=== PATIENT | female | born 1975 | race Asian ===

== ENCOUNTER 2021-05-11 09:03 | Outpatient (REF) | payer BC, SELFPAY ==
[2021-05-11 11:26] LABS: MANUAL DIFF FLAG NO
[2021-05-11 11:32] LABS: Basophils Percent Auto 0.5 % (0-2); Eosinophils Absolute Auto 0.4 X10*3/uL (0.0-0.4); Eosinophils Percent Auto 4.6 % (0-4); Hematocrit 41.3 % (37.0-47.0); Hemoglobin 13.1 g/dl (12.0-16.0); Imm Gran Abs Auto 0.02 X10*3/uL (0.00-0.03); Imm Gran Pct Auto 0.3 % (0.0-0.4); Lymphocytes Absolute Auto 2.5 X10*3/uL (1.2-4.9); Lymphocytes Percent Auto 32.9 % (20-40); Mean Corpuscular HGB Conc 31.7 g/dl (31.0-35.0); Mean Corpuscular Hemoglobin 28.3 pg (27.0-33.0); Mean Corpuscular Volume 89.2 fL (80.0-98.0); Mean Platelet Volume 9.1 fL (9.4-12.3); Monocytes Absolute Auto 0.6 X10*3/uL (0.1-1.2); Monocytes Percent Auto 7.8 % (2-11); Neutrophils Absolute Auto 4.1 x10*3/uL (2.0-8.3); Neutrophils Percent Auto 53.9 % (45-73); Platelet Count 426 X10*3/uL (160-400); Red Blood Count 4.63 X10*6/uL (4.20-5.50); Red Cell Distribution Width 12.9 % (11.0-16.0); White Blood Count 7.5 X10*3/uL (4.8-10.8)
[2021-05-11 11:53] LABS: Alanine Aminotransferase 14 U/L (0-31); Albumin Level 4.4 g/dL (3.5-5.0); Alkaline Phosphatase 55 U/L (39-117); Anion Gap 11 (12-20); Aspartate Amino Transferase 20 U/L (5-31); Bilirubin Total 0.4 mg/dL (0.0-1.0); Blood Urea Nitrogen 13 mg/dL (9-16); Calcium 9.3 mg/dL (8.4-10.2); Carbon Dioxide 29 mmol/L (22-29); Chloride 103 mmol/L (96-108); Cholesterol 236 mg/dL; Estimated Glomerular Filt Rate > 60; Glucose Fasting 88 mg/dL (60-99); HDL Cholesterol 63 mg/dL; LDL Cholesterol Calculated 150 mg/dl; Potassium 4.2 mmol/L (3.3-5.1); Sodium 139 mmol/L (135-145); Total Protein 7.5 g/dL (6.5-8.0); Triglycerides 117 mg/dL
[2021-05-11 12:05] LABS: TSH reflex Free T4 2.18 uIU/mL (0.32-4.0)
== END 2021-05-11 09:04 | disposition home or self-care (01) ==
LOC: HO.WFDLDS 09:03
PROVIDERS: Visit Provider Family Medicine
DX: Z00.00 Encounter for general adult medical examination without abnormal findings (principal)
CPT/HCPCS: 36415; 80053; 80061; 84443; 85025

== ENCOUNTER 2022-03-14 09:21 | Outpatient (REF) | payer BC, SELFPAY ==
[2022-03-14 11:28] LABS: Cholesterol 232 mg/dL; HDL Cholesterol 70 mg/dL; LDL Cholesterol Calculated 143 mg/dl; Triglycerides 96 mg/dL
== END 2022-03-14 09:22 | disposition home or self-care (01) ==
LOC: HO.WFDLDS 09:21
PROVIDERS: Visit Provider Family Medicine
DX: Z00.00 Encounter for general adult medical examination without abnormal findings (principal); E78.00 Pure hypercholesterolemia, unspecified
CPT/HCPCS: 36415; 80061

== ENCOUNTER 2022-06-15 09:35 | Outpatient (REF) | payer BC, SELFPAY ==
[2022-06-15 11:05] LABS: MANUAL DIFF FLAG NO
[2022-06-15 11:12] LABS: Basophils Absolute Auto 0.1 X10*3/uL (0.0-0.2); Basophils Percent Auto 0.7 % (0-2); Eosinophils Absolute Auto 0.3 X10*3/uL (0.0-0.4); Eosinophils Percent Auto 4.3 % (0-4); Hematocrit 41.6 % (37.0-47.0); Hemoglobin 13.3 g/dl (12.0-16.0); Imm Gran Abs Auto 0.01 X10*3/uL (0.00-0.03); Imm Gran Pct Auto 0.1 % (0.0-0.4); Lymphocytes Absolute Auto 2.1 X10*3/uL (1.2-4.9); Lymphocytes Percent Auto 29.7 % (20-40); Mean Corpuscular Hemoglobin 28.5 pg (27.0-33.0); Mean Corpuscular Volume 89.1 fL (80.0-98.0); Mean Platelet Volume 9.3 fL (9.4-12.3); Monocytes Absolute Auto 0.5 X10*3/uL (0.1-1.2); Monocytes Percent Auto 6.9 % (2-11); Neutrophils Absolute Auto 4.1 x10*3/uL (2.0-8.3); Neutrophils Percent Auto 58.3 % (45-73); Platelet Count 375 X10*3/uL (160-400); Red Blood Count 4.67 X10*6/uL (4.20-5.50)
[2022-06-15 11:50] LABS: Appearance Urine Clear; Color Urine Yellow; Glucose Urine UA Negative (Negative); Leukocyte Esterase Urine Negative (Negative); Nitrite Urine Negative (Negative); Specific Gravity - Urine 1.025 (1.005-1.025); Urine Blood Negative (Negative); Urine Ketones Trace mg/dL (Negative); Urine Protein Negative (Neg-Trace)
[2022-06-15 12:05] LABS: Alanine Aminotransferase 15 U/L (0-31); Albumin Level 4.2 g/dL (3.5-5.0); Alkaline Phosphatase 57 U/L (39-117); Anion Gap 12 (12-20); Aspartate Amino Transferase 19 U/L (5-31); Bilirubin Total 0.8 mg/dL (0.0-1.0); Blood Urea Nitrogen 16 mg/dL (9-16); Calcium 8.9 mg/dL (8.4-10.2); Carbon Dioxide 25 mmol/L (22-29); Chloride 105 mmol/L (96-108); Cholesterol 209 mg/dL; Estimated Glomerular Filt Rate > 60; Glucose Fasting 101 mg/dL (60-99); HDL Cholesterol 60 mg/dL; LDL Cholesterol Calculated 133 mg/dl; Potassium 3.9 mmol/L (3.3-5.1); Sodium 138 mmol/L (135-145); Total Protein 6.7 g/dL (6.5-8.0); Triglycerides 82 mg/dL
[2022-06-15 12:32] LABS: Microalbum/Creatinine Ratio Ur 5.5 ug/mg cr
== END 2022-06-15 09:36 | disposition home or self-care (01) ==
LOC: HO.WFDLDS 09:35
PROVIDERS: Visit Provider Family Medicine
DX: Z00.00 Encounter for general adult medical examination without abnormal findings (principal); I10 Essential (primary) hypertension
CPT/HCPCS: 36415; 80053; 80061; 81003; 82043; 84443; 85025

== ENCOUNTER → 2022-07-18 08:22 | Outpatient (BNVA) | payer BC, SELFPAY | PROVIDERS: PCP Family Medicine; Visit Provider Physician Assistant | DX: Z13.89 Encounter for screening for other disorder (principal) ==

== ENCOUNTER 2022-11-15 11:19 | Outpatient (AMB) | payer BC, SELFPAY ==
--- NOTE | 2022-11-15 11:22 | A.OFFPC_ITS ---
Vital Signs 11/15/22 11:23 Height 5 ft 3 in Weight 180 lb 8 oz BMI 32.0 BP 124/86 Blood Pressure Location Rt brachial Position Sitting Respiration 12 Pulse 103 H Pulse Source Pulse Oximeter Temp 98 F Temp Source Temporal Artery Scan Pulse Oximetry (%) 99 Oxygen Delivery Method Room Air Intake Visit Reasons: F/U Hypertension Intake Note: Patient would like to know if she needs blood drawn, she fasted this morning just incase. Chief Administrative Officer Required: No Accompanied by: Self / Same As Patient Allergies ibuprofen [Ibuprofen] Allergy (Mild, Verified 11/15/22 11:27) RASH Tobacco use date assessed: 06/15/22 Dental Screening Dental Screen Date: 11/15/22 Did you have a dental visit in the last 12 months?: Yes Did you have a dental problem in the last 6 months where you did not have access to dental care?: No Was dental information given to patient?: Patient has dentist HPI F/U Hypertension HPI Details 47 y/o female presents to f/u hypertension. BP today 124/86. She is on losartan 50mg and verapamil 240 mg daily. Labs were drawn 06/15/22. Reviewed labs with pt. Triglycerides 82. TC 209. LDL 133. HDL 60. She is on artovastatin 20mg daily. She is not getting much exercise though she notes she keeps herself active at work. [facility] Medical History No pertinent past medical history Surgical History No pertinent past surgical history Social History Housing: House Patient Tobacco Use Status: Never used Tobacco e-Cigarette/Vaping Use: Never Used Second Hand Smoke Exposure: Yes (sometimes at work ) service: No Current occupational status: employed Current occupation: [employer] Current occupational exposures/hazards: No Cognitive needs: No Hearing needs: No Vision needs: No Questionnaire Thrive Questionnaire Date Thrive assessed: 04/20/21 FRANCISCA-7 AMB Questionnaire FRANCISCA-7 Date FRANCISCA - 7 assessed: 04/20/21 Source: Developed by Drs. Karel Ross, Agueda Neves, Reginaldo Ramirez and colleagues, with an educational jason from [employer]. Review of Systems Const Denies chills, Denies fatigue, Denies fever(s), Denies headache(s) and Denies weakness ENT Denies dizziness and Denies headache(s) Card Denies chest pain, Denies lightheadedness, Denies dyspnea and Denies other (Palpitations) Resp Denies cough, Denies dyspnea, Denies wheezing and Denies other ( shortness of breath) Musc Denies numbness and Denies tingling Neuro Denies dizziness, Denies headache(s), Denies numbness, Denies tingling, Denies paresthesias and Denies weakness Psych Denies anxiety and Denies depression Endo Denies fatigue Aller/Immun Denies wheezing Physical exam (Primary Care) Vital Signs: Last Vital Signs Temp 98 F 11/15/22 11:23 Pulse 103 H 11/15/22 11:23 Resp 12 11/15/22 11:23 BP 124/86 11/15/22 11:23 Pulse Ox 99 11/15/22 11:23 Oxygen Delivery Method Room Air 11/15/22 11:23 BMI result Body Mass Index 32.0 Tobacco/Smoking Status: Tobacco use Status Tobacco use date assessed 06/15/22 11/15/22 11:30 Patient Tobacco Use Status Never used Tobacco 11/15/22 11:30 e-Cigarette/Vaping Use Never Used 11/15/22 11:30 Thrive Assessment: Date of Thrive Assessment Date Thrive assessed 04/20/21 11/15/22 11:30 Const General: no acute distress and well developed Nutritional Appearance: well nourished Orientation/consciousness: patient oriented x3 [facility] Head: Yes normocephalic and Yes atraumatic Eyes General: appearance normal, both eyes and all related structures Pupils: Equal, round and reactive pupils present EOM: EOMs intact bilaterally Resp Effort & Inspection: normal respiratory effort Auscultation: clear to auscultation bilaterally Cardio Rate: regular rate Rhythm: regular rhythm Heart sounds: S1 normal heart sound present, S2 normal heart sound present, no gallops, no murmurs and no rubs Neuro General: patient oriented x3 and gait normal Cranial nerves: Yes Equal, round and reactive pupils present Psych Affect: normal affect Assessment and Plan Assessment & Plan (1) Essential hypertension: Code(s): I10 - Essential (primary) hypertension Plan: Blood pressure is controlled. 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 Ratios are good Continue current medication (3) Elevated fasting glucose: Code(s): R73.01 - Impaired fasting glucose Plan: Mildly elevated fasting blood sugar We will repeat this prior to her next visit Orders: Referrals Gastroenterology Referral Z12.11 - Encounter for screening for malignant neoplasm of colon Coding Level of Care Code Est Pt Level 3 (66870) Diagnoses Essential hypertension I10 Hypercholesterolemia E78.00 Elevated fasting glucose R73.01
[2022-11-15 11:23] VITALS: BP 124/86; PULSE 103; RESP 12; TEMP 36.6; O2SAT 99; BMI 32.0
== END 2022-11-15 11:55 | disposition home or self-care (01) ==
PROVIDERS: PCP Family Medicine; Visit Provider Family Medicine
DX: I10 Essential (primary) hypertension (principal); E78.00 Pure hypercholesterolemia, unspecified; R73.01 Impaired fasting glucose
CPT/HCPCS: 99213

== ENCOUNTER 2023-03-05 09:08 | Outpatient (REF) | payer BC, SELFPAY ==
[2023-03-05 12:06] LABS: TSH reflex Free T4 1.91 uIU/mL (0.32-4.0)
[2023-03-05 12:27] LABS: Alanine Aminotransferase 18 U/L (0-31); Albumin Level 4.2 g/dL (3.5-5.0); Alkaline Phosphatase 65 U/L (39-117); Anion Gap 13 (12-20); Aspartate Amino Transferase 21 U/L (5-31); Bilirubin Total 0.5 mg/dL (0.0-1.0); Blood Urea Nitrogen 11 mg/dL (9-16); Calcium 9.2 mg/dL (8.4-10.2); Carbon Dioxide 25 mmol/L (22-29); Chloride 103 mmol/L (96-108); Cholesterol 136 mg/dL (<200); Estimated Glomerular Filt Rate > 60; Glucose Fasting 98 mg/dL (60-99); HDL Cholesterol 56 mg/dL (>40); LDL Cholesterol Calculated 64 mg/dL (<100); Potassium 3.6 mmol/L (3.3-5.1); Sodium 137 mmol/L (135-145); Total Protein 7.5 g/dL (6.5-8.0); Triglycerides 82 mg/dL (<150)
== END 2023-03-05 09:09 | disposition home or self-care (01) ==
LOC: HO.WFDLDS 09:08
PROVIDERS: Visit Provider Family Medicine
DX: Z00.00 Encounter for general adult medical examination without abnormal findings (principal); R73.01 Impaired fasting glucose
CPT/HCPCS: 36415; 80053; 80061; 84443

== ENCOUNTER 2023-03-07 08:27 | Outpatient (AMB) | payer BC, SELFPAY ==
[2023-03-07 08:30] VITALS: BP 148/88; PULSE 124; RESP 13; O2SAT 94; BMI 31.2
--- NOTE | 2023-03-07 08:30 | A.OFFPC_ITS ---
Vital Signs 03/07/23 08:30 Height 5 ft 3 in Weight 176 lb BMI 31.2 BP 148/88 H Blood Pressure Location Lt brachial Position Sitting Respiration 13 Pulse 124 H Pulse Source Pulse Oximeter Pulse Oximetry (%) 94 Oxygen Delivery Method Room Air Intake Visit Reasons: F/U Hypertension Intake Note: Patient is here to follow up with her blood pressure. She mentions she's had a cough and cold x1 week and has tried OTC medications and they were not helpful. Patient requests information on OTC medications she can take with blood pressure concerns. Phys Ther Required: No Accompanied by: Self / Same As Patient Allergies ibuprofen [Ibuprofen] Allergy (Mild, Verified 03/07/23 08:36) RASH Tobacco use date assessed: 06/15/22 HPI F/U Hypertension HPI Details 48 y/o female presents to f/u hypertensi on. Blood pressure today 148/88 124p but pt states she does not feel well today. She reports cough x1 week. She is on losartan 50mg and verapamil 240mg daily. A1c today 03/07/23 6.0%. [facility] Medical History No pertinent past medical history Surgical History No pertinent past surgical history Social History Housing: House Patient Tobacco Use Status: Never used Tobacco e-Cigarette/Vaping Use: Never Used Second Hand Smoke Exposure: Yes (sometimes at work ) service: No Current occupational status: employed Current occupation: [employer] Current occupational exposures/hazards: No Cognitive needs: No Hearing needs: No Vision needs: No Questionnaire Thrive Questionnaire Date Thrive assessed: 04/20/21 FRANCISCA-7 AMB Questionnaire FRANCISCA-7 Date FRANCISCA - 7 assessed: 04/20/21 Source: Developed by Drs. Karel Ross, Agueda Neves, Reginlado Ramirez and colleagues, with an educational jason from [employer]. Review of Systems Const Denies chills, Denies fatigue, Denies fever(s), Denies headache(s) and Denies weakness ENT Denies dizziness and Denies headache(s) Card Denies dyspnea Resp Reports cough, Denies dyspnea and Denies wheezing Musc Denies numbness and Denies tingling Neuro Denies dizziness, Denies headache(s), Denies numbness, Denies tingling and Denies weakness Psych Denies anxiety and Denies depression Endo Denies fatigue Aller/Immun Denies wheezing Physical exam (Primary Care) Vital Signs: Last Vital Signs Pulse 124 H 03/07/23 08:30 Resp 13 03/07/23 08:30 BP 148/88 H 03/07/23 08:30 Pulse Ox 94 03/07/23 08:30 Oxygen Delivery Method Room Air 03/07/23 08:30 BMI result Body Mass Index 31.2 Tobacco/Smoking Status: Tobacco use Status Tobacco use date assessed 06/15/22 03/07/23 08:37 Patient Tobacco Use Status Never used Tobacco 03/07/23 08:37 e-Cigarette/Vaping Use Never Used 03/07/23 08:37 Thrive Assessment: Date of Thrive Assessment Date Thrive assessed 04/20/21 03/07/23 08:37 Const General: well developed; No acute distress Nutritional Appearance: well nourished Orientation/consciousness: patient oriented x3 [facility] Head: Yes normocephalic and Yes atraumatic Eyes General: appearance normal, both eyes and all related structures Pupils: Equal, round and reactive pupils present EOM: EOMs intact bilaterally Resp Effort & Inspection: normal respiratory effort Neuro General: patient oriented x3 and gait normal Cranial nerves: Yes Equal, round and reactive pupils present Psych Affect: normal affect Results AMB Hemoglobin A1c AMB Hemoglobin A1c 6.0 % Last Edit by Emi Barraza CMA on 03/07/23 08:54 Results Reviewed Results Reviewed: Laboratory Last Values Hgb A1c (Clinic) 6.0 % (4.0-6.0) 03/07/23 08:53 Assessment and Plan Assessment & Plan (1) Essential hypertension: Code(s): I10 - Essential (primary) hypertension Plan: Is?elevated?today?but?she?has?had?a?cough?and?some?congestion.??Has?been?using?a ?cough?medicine?at?home?as?well. No?change?to?her?blood?pressure?medications?today She?has?a?blood?pressure?monitor?at?home?and?will?check?to?make?sure?blood?press ure?is?improving?as?she?gets?better?and?cough?resolves. (2) Pre-diabetes: Code(s): R73.03 - Prediabetes Plan: She?had?had?elevated?fasting?blood?sugar?and?A1c?today?is?6.0%;?pre?diabetes Encouraged?a?diet?low?in?sugars?and?starches.??Encouraged?weight?loss?and?exerci se (3) Cough: Code(s): R05.9 - Cough, unspecified Plan: Nasal?swab?for?COVID/flu/RSV?acquired. More?likely?a?mild?viral?illness?like?a?cold. Advised?rest?and?fluids Orders: Orders Comprehensive [place]. Panel Fast Today Z00.00 - Encounter for general adult medical examination without abnormal findings Lipid Panel Today Z00.00 - Encounter for general adult medical examination without abnormal findings Microalbumin, Random (w Creat) Today I10 - Essential (primary) hypertension AMB Hemoglobin A1c Today Z13.9 - Encounter for screening, unspecified SARS-CoV2/FLU/RSV Today R05.9 - Cough, unspecified, Z20.822 - Contact with and (suspected) exposure to COVID-19 TSH reflex Free T4 Today Z00.00 - Encounter for general adult medical examination without abnormal findings UA and rflx microscopic Today Z00.00 - Encounter for general adult medical examination without abnormal findings Hemoglobin A1c Today R73.01 - Impaired fasting glucose Coding Level of Care Code Est Pt Level 4 (70979) Diagnoses Essential hypertension I10 Pre-diabetes R73.03 Cough R05.9
== END 2023-03-07 09:39 | disposition home or self-care (01) ==
PROVIDERS: PCP Family Medicine; Visit Provider Family Medicine
DX: I10 Essential (primary) hypertension (principal); R73.03 Prediabetes; R05.9 Cough, unspecified
CPT/HCPCS: 83036; 99214

== ENCOUNTER 2023-03-07 09:06 | Outpatient (REF) | payer BC, SELFPAY ==
[2023-03-07 13:21] LABS: Influenza A PCR NEGATIVE (Negative); Influenza B PCR NEGATIVE (Negative); Resp Syncy Virus RNA Qual PCR NEGATIVE (Negative); SARS COV2 PCR INHOUSE NEGATIVE (Negative)
== END 2023-03-07 09:07 | disposition home or self-care (01) ==
LOC: HO.LAB 09:06
PROVIDERS: Visit Provider Family Medicine
DX: Z11.52 Encounter for screening for COVID-19 (principal); Z20.822 Contact with and (suspected) exposure to COVID-19; R05.9 Cough, unspecified
CPT/HCPCS: 0241U

== ENCOUNTER 2023-04-22 07:43 | Day surgery (SDC) | payer BC, SELFPAY ==
--- NOTE | 2023-04-19 09:16 | HO.ANESPROP2 ---
Documented by User: Destini Garcia NP 04/19/23 12:38 HPI - Anesthesia Eval Consult details Narrative: 48yo F for Colonoscopy Follows [facility] cardiology for htn, PVCs, mild-mod MR. Stable at last office visit 05/2022 with 1 year f/u. [facility] Active Problems Active Problems: All Active Problems (Updated 03/07/23 @ 08:59 by Angelo Huertas) Cough (Acute) Pre-diabetes (Acute) Elevated fasting glucose (Acute) Mitral valve regurgitation (Acute) Screening for colon cancer (Acute) Prolonged QT syndrome (Acute) Shortness of breath (Acute) Abnormal EKG (Acute) History of COVID-19 (Acute) Screening for cervical cancer (Acute) Breast cancer screening by mammogram (Acute) Hypercholesterolemia (Acute) Adult general medical exam (Acute) Palpitations (Acute) Family history of heart disease (Acute) Tachycardia (Acute) Headache (Acute) Essential hypertension (Acute) Laboratory exam ordered as part of routine general medical examination (Acute) Past Medical History Medical History (Updated 04/19/23 @ 12:28 by Yessica Licona RN) Pre-diabetes Elevated cholesterol HTN (hypertension) No pertinent past medical history Surgical History Surgical History (Updated 04/22/23 @ 08:02 by Nasra Rogers RN) History of bilateral tubal ligation No pertinent past surgical history Social History Social History Housing: House Patient Tobacco Use Status: Never used Tobacco e-Cigarette/Vaping Use: Never Used Second Hand Smoke Exposure: Yes (sometimes at work ) Advance Directives: No Advance Directives Information Provided: Yes service: No Current occupational status: employed Current occupation: [employer] Current occupational exposures/hazards: No Cognitive needs: No Hearing needs: No Vision needs: No Meds Allergies Allergy/AdvReac Type Severity Reaction Status Date / Time ibuprofen [Ibuprofen] Allergy Mild RASH Verified 03/07/23 08:36 Home Medications Medication Instructions Recorded Confirmed Last Taken Type cholecalciferol (vitamin D3) 125 125 mcg PO DAILY 03/23/21 07/18/22 Unknown History mcg (5,000 unit) capsule multivitamin (Daily Multi-Vitamin 1 tab PO DAILY 03/23/21 07/18/22 Unknown History tablet) ascorbate calcium (vitamin C) 500 500 mg PO DAILY 03/14/22 07/18/22 Unknown History mg tablet Exam Pertinent Lab Results Pertinent Lab Results: Laboratory Tests 06/15/22 03/05/23 09:45 09:12 WBC 7.0 Hgb 13.3 Hct 41.6 Plt Count 375 Sodium 137 Potassium 3.6 Chloride 103 Carbon Dioxide 25 BUN 11 Creatinine 0.77 Assessment and Plan Assessment Anesthesia Assessment: Chart Reviewed Documented by User: Norma Landry MD 04/22/23 08:19 [facility] Past Medical History Medical History (Updated 04/19/23 @ 12:28 by Yessica Licona RN) Pre-diabetes Elevated cholesterol HTN (hypertension) No pertinent past medical history Family History Family history of problems with anesthesia: No Surgical History Surgical History (Updated 04/22/23 @ 08:02 by Nasra Rogers RN) History of bilateral tubal ligation No pertinent past surgical history History of Problems with Anesthesia: No Social History Social History Housing: House Patient Tobacco Use Status: Never used Tobacco e-Cigarette/Vaping Use: Never Used Second Hand Smoke Exposure: Yes (sometimes at work ) Advance Directives: No Advance Directives Information Provided: Yes service: No Current occupational status: employed Current occupation: [employer] Current occupational exposures/hazards: No Cognitive needs: No Hearing needs: No Vision needs: No Meds Allergies Allergy/AdvReac Type Severity Reaction Status Date / Time ibuprofen [Ibuprofen] Allergy Mild RASH Verified 03/07/23 08:36 Home Medications Medication Instructions Recorded Confirmed Last Taken Type cholecalciferol (vitamin D3) 125 125 mcg PO DAILY 03/23/21 07/18/22 Unknown History mcg (5,000 unit) capsule multivitamin (Daily Multi-Vitamin 1 tab PO DAILY 03/23/21 07/18/22 Unknown History tablet) ascorbate calcium (vitamin C) 500 500 mg PO DAILY 03/14/22 07/18/22 Unknown History mg tablet Exam Airway Mallampati Class: II TM Dist: >3cm Neck ROM: Full Heart: rrr Lungs: cta Assessment and Plan Assessment Anesthesia Assessment: Anesthesia Plan Discussed Final Anesthetic Review Family History of Problems with Anesthesia: No History of Problems with Anesthesia: No NPO: Yes ASA Class: II Final Preanesthetic Review: No Changes in Pt Med Stat, Meds/Allgs Chart Reviewed and Consent Obtained/Reviewed Patient Risk: Intermediate Procedure Risk: Intermediate Anesthetic Plan Anesthetic Plan: MAC: Disposition: Standard PACU
--- NOTE | 2023-04-22 08:08 | MHC.SHP ---
Pre-Procedural Eval Section A Date of Service: 04/22/23 The patient is an INPATIENT: No The History & Physical has been completed within 30 days and I have reviewed it.: No Section B Chief Complaint: Colon cancer screening Relevant Family History (Specify if Yes): No Relevant Social History: None Present Medications: see Short Stay Collaborative assessment Medical History: Significant History (hypertension, MV regurgitation, Prolonged QT interval) History of Previous Operations: Relevant previous surgery/procedure and date(s) (Status post bilateral tubal ligation) Allergies: Allergies Allergy/AdvReac Type Severity Reaction Status Date / Time ibuprofen [Ibuprofen] Allergy Mild RASH Verified 03/07/23 08:36 Review of Systems Sugical H&P ROS: Negative: Constitution, Cardiovascular, Respiratory and Gastrointestinal Exam Surgical H&P Exam: Normal: Lungs, Normal: Extremities and Normal: Abdomen and Significant Findings: Heart (2/6 systolic murmur at the apex) Plan Diagnosis/Plan: Unchanged I have reviewed the history and physical and performed a pertinent physical examination on my patient. No changes have occurred unless specified. Time Spent With Patient Time: Total time managing care of this patient today ____ minutes.
[2023-04-22 08:20] VITALS: BMI 31.9
[2023-04-22 08:46] VITALS: BP 147/88; PULSE 93; RESP 18; TEMP 37.4; O2SAT 99
--- NOTE | 2023-04-22 09:16 | W.PM.OPN ---
Operative Note Operative Note Date of Service: 04/22/23 Narrative: COLONOSCOPY TILL CECUM WITH BIOPSIES, SNARE POLYPECTOMY, SUBMUCOSAL INJECTION AND HEMOCLIP PLACEMENT Pre-op diagnosis: Colon cancer screening (1st colonoscopy) Post-op diagnosis:? Colon polyps, diverticulosis, hemorrhoids Endoscopist:Lino Be MD Anesthesia:?MAC Consent: Indications for the procedure and potential complications of bleeding, perforation, reaction to medications and missed diagnosis were discussed with the patient and informed consent was obtained. Instrument: Olympus PCF H 190 L variable stiffness pediatric colonoscope Monitoring: Vital signs and clinical assessment, intermittent blood pressure monitoring, continuous EKG monitoring, Pulse oximetry and Carbon Dioxide monitoring were done throughout the procedure. Please see anesthesia flowsheet. Colon withdrawl time was 27 minutes. Procedure: The patient was placed in the left lateral decubitis position and pre-procedure medications were administered. After a digital rectal examination of the ano-rectum, the video colonoscope was inserted into the rectum and advanced through the colon to the cecum. The colonoscope was slowly withdrawn in a retrograde panoramic fashion and the colon mucosa was carefully examined including a retroflexed view of the rectum. Findings and interventions are described below. Procedure Difficulty: Without difficulty Findings: Terminal Ileum: Not evaluated Cecum: A 2-3 mm sessile polyp - removed with a cold biopsy Ascending Colon: A 12 mm sessile polyp at the hepatic flexure - removed with a hot snare Transverse Colon: A 15-18 mm flat polyp at 65 cms - raised with 5 cc of Ele[place] and removed with a hot snare. Polypectomy site was closed with 1 hemoclip and marked with Fang ink. A 12 - 15 mm flat polyp at 60 cms. Polyp was raised with 6 cc of Eleview and removed with a hot snare. Polypectomy site was marked with Fang ink. Descending Colon: Moderate diverticulosis Sigmoid Colon: A 10 - 12 mm sessile polyp - removed with a hot snare. Moderate diverticulosis Rectum: Normal Ano-rectum: Small internal hemorrhoids Colon preparation: Good after some irrigation [place] Bowel Preparation Scale Right colon; 3 Transverse colon: 3 Left colon; 2 (0 = Unprepared colon segment with mucosa not seen due to solid stool that cannot be cleared. 1 = Portion of mucosa of the colon segment seen, but other areas of the colon segment not well seen due to staining, residual stool and/or opaque liquid. 2 = Minor amount of residual staining, small fragments of stool and/or opaque liquid, but mucosa of colon segment seen well. 3 = Entire mucosa of colon segment seen well with no residual staining, small fragments of stool or opaque liquid) Impression and Post Procedure Diagnosis: Colonoscopy Findings: One small and four medium sized polyps removed Moderate diverticulosis seen in the left colon Small hemorrhoids on retroflexed exam. Plan: Await pathology results Patient has an appointment on 05/07/23 in the GI Clinic with JOEL Weiner. Repeat Colonoscopy interval based on path results - in 2-3 years if polyps are adenomatous and 10 years if polyps are hyperplastic. Above findings were reviewed with the patient and colon polyps and diverticulosis handouts were given in the discharge area.
[2023-04-22 10:01] VITALS: BP 97/64; PULSE 60; RESP 16; TEMP 36.3; O2SAT 100
[2023-04-22 10:16] VITALS: BP 117/71; PULSE 64; RESP 14; TEMP 36.3; O2SAT 100
== END 2023-04-22 10:56 | disposition home or self-care (01) ==
PROVIDERS: PCP Family Medicine; Visit Provider Internal Medicine Gastroenterology
PROC: 0DJD8ZZ Inspection of Lower Intestinal Tract, Via Natural or Artificial Opening Endoscopic (ICD-10-PCS; CPT 45378; principal; 2023-04-22 09:20)
DX: Z12.11 Encounter for screening for malignant neoplasm of colon (principal); D12.3 Benign neoplasm of transverse colon; D12.8 Benign neoplasm of rectum; K57.30 Diverticulosis of large intestine without perforation or abscess without bleeding; K64.8 Other hemorrhoids; R73.03 Prediabetes; I10 Essential (primary) hypertension; E78.00 Pure hypercholesterolemia, unspecified
CPT/HCPCS: 45385; 45380; 45381; 88305; J2704

== ENCOUNTER → 2023-04-22 07:43 | Outpatient (BNV) | payer BC, SELFPAY | PROVIDERS: PCP Family Medicine; Visit Provider Internal Medicine Gastroenterology | DX: Z12.11 Encounter for screening for malignant neoplasm of colon (principal); K63.5 Polyp of colon; K57.90 Diverticulosis of intestine, part unspecified, without perforation or abscess without bleeding; K64.8 Other hemorrhoids | CPT/HCPCS: 45380; 45381; 45385 ==

== ENCOUNTER 2023-05-21 14:35 | Outpatient (AMB) | payer BC, SELFPAY ==
--- NOTE | 2023-05-21 14:42 | A.OFFVIS_ITS ---
Intake Vital Signs 05/21/23 14:44 05/22/23 08:37 Height 5 ft 2 in Weight 176 lb BMI 32.2 BP 133/81 Blood Pressure Location Lt brachial Position Sitting Pulse 112 H 96 Intake Visit Reasons: S/P [place]; Dr. Be Intake Note: Patient follow up for Colonoscopy results Patient denies any GI issues. 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 She tolerated procedure well He has no GI complaints today Appetite is good Bowels are normal Reviewed procedure report, pathology and recommendation No nausea, vomiting, hematemesis, hematochezia fever chills [facility] Medical History (Updated 05/22/23 @ 08:38 by Patrica Bose PA-C) Pre-diabetes Elevated cholesterol HTN (hypertension) No pertinent past medical history Surgical History Hx of colonoscopy History of bilateral tubal ligation No pertinent past surgical history Social History Housing: House Comment: mild cramping-on menses Patient Tobacco Use Status: Never used Tobacco e-Cigarette/Vaping Use: Never Used Second Hand Smoke Exposure: Yes (sometimes at work ) service: No Current occupational status: employed Current occupation: [employer] Current occupational exposures/hazards: No Cognitive needs: No Hearing needs: No Vision needs: No Review of Systems Const All systems reviewed & are unremarkable except as noted in HPI and below Physical Exam Vital Signs: Last Vital Signs Pulse 112 H 05/21/23 14:44 BP 133/81 05/21/23 14:44 BMI result Body Mass Index 32.2 Const General: cooperative, healthy appearing, comfortable and no acute distress Orientation/consciousness: patient oriented x3 Limitations: no limitations Eyes Sclerae: sclerae normal Resp Effort & Inspection: normal respiratory effort and able to speak in complete sentences Neuro General: patient oriented x3 Results Reviewed Results Reviewed: mpression and Post Procedure Diagnosis: Colonoscopy Findings: One small and four medium sized polyps removed Moderate diverticulosis seen in the left colon Small hemorrhoids on retroflexed exam. Plan: Await pathology results Patient has an appointment on 05/07/23 in the [facility] with JOEL Weiner. Repeat Colonoscopy interval based on path results - in 2-3 years if polyps are adenomatous and 10 years if polyps are hyperplastic. Above findings were reviewed with the patient and colon polyps and diverticulosis handouts were gi mpression and Post Procedure Diagnosis: Colonoscopy Findings: One small and four medium sized polyps removed Moderate diverticulosis seen in the left colon Small hemorrhoids on retroflexed exam. Plan: Await pathology results Patient has an appointment on 05/07/23 in the GI Clinic with JOEL Weiner. Repeat Colonoscopy interval based on path results - in 2-3 years if polyps are adenomatous and 10 years if polyps are hyperplastic. Above findings were reviewed with the patient and colon polyps and diverticulosis handouts were gi Surgical Pathology [id number] Name: Nico Garg Age/Sex: 48/F Attending: Alyssa Be MD : 1975 Submitted by: Alyssa Be MD Copies to: Maurice Villagomez MD MR #: [id number] Status: [facility] Collected: 04/22/23 Location: [facility] Received: 04/22/23 Diagnosis A. Colon, cecal polyp: Colonic mucosa with no specific change; no adenomatous dysplasia seen. B. Colon, hepatic flexure, polyp: Colonic mucosa with focal minimal hyperplastic changes; no adenomatous dysplasia seen. C. Colon, transverse, 2 polyps: Sessile serrated lesion/polyp without dysplasia, one, and hyperplastic polyp, one. D. Colon, rectal polyp: Tubular adenoma; negative for high-grade dysplasia and carcinoma. Clinical History Pre-Op Dx: Colon cancer screening Post-Op Dx: Colon polyps, diverticulosis Microscopic Description Microscopic sections reviewed. Material Received A. Cecum polyp B. Hepatic flexure polyp C. Transverse colon polyps x2 D. Rectal polyp Gross Description Received in 4 parts. Part A: Received in formalin labeled ?cecum polyp? are 2 erickson-pink irregular tissue fragments measuring 0.15 and 0.3 cm, submitted in toto in a cassette labeled A. Part B: Received in formalin labeled ?hepatic flexure polyp? is a 0.5 cm erickson rectangular tissue fragment, submitted in toto in a cassette labeled B. Part C: Received in formalin labeled ?transverse colon polyps x2? are 2 hyperemic and congested, erickson- pink and pink-maroon papular tissue fragments measuring 0.5 and 0.6 cm in greatest dimension, submitted in toto in a cassette labeled C. Part D: Received in formalin labeled ?rectal polyp? are 5 erickson and erickson-pink irregular and rectangular Patient: Nico Garg Age/Sex: 48/F MR#: [id number] Page 1 of 2 Assessment & Plan Assessment & Plan (1) Sessile colonic polyp: Code(s): K63.5 - Polyp of colon (2) Tubular adenoma of colon: Code(s): D12.6 - Benign neoplasm of colon, unspecified (3) Diverticulosis of colon: Code(s): K57.30 - Diverticulosis of large intestine without perforation or abscess without bleeding Plan AFDR- begin screening at age 40- Repeat polyp surveillance 3 years Patient Instructions: Pleasant 48-year-old female follows up after index screening colonoscopy with polyp Reviewed procedure report, pathology recommendation Repeat asymptomatic colonoscopy 3 years All first-degree relatives should begin screening at age 40 Discussed diverticulosis/diverticulitis ER protocol Maintain high-fiber diet Encouraged to call with any questions or concerns Coding Level of Care Code Est Pt Level 3 (33729) Diagnoses Sessile colonic polyp K63.5 Tubular adenoma of colon D12.6 Diverticulosis of colon K57.30 Time Spent (min) 20
[2023-05-21 14:44] VITALS: BP 133/81; PULSE 112; BMI 32.2
[2023-05-22 08:37] VITALS: PULSE 96
== END 2023-05-21 15:34 | disposition home or self-care (01) ==
PROVIDERS: PCP Family Medicine; Visit Provider Physician Assistant
DX: K63.5 Polyp of colon (principal); D12.6 Benign neoplasm of colon, unspecified; K57.30 Diverticulosis of large intestine without perforation or abscess without bleeding
CPT/HCPCS: 99213

== ENCOUNTER → 2023-05-21 14:35 | Outpatient (BNVA) | payer BC, SELFPAY | PROVIDERS: PCP Family Medicine; Visit Provider Physician Assistant ==

== ENCOUNTER 2023-06-19 09:01 | Outpatient (REF) | payer BC, SELFPAY ==
[2023-06-19 11:43] LABS: Appearance Urine Clear; Color Urine Yellow; Glucose Urine UA Negative (Negative); Leukocyte Esterase Urine Trace (Negative); Nitrite Urine Negative (Negative); PH 5.5 (5.0-9.0); Specific Gravity - Urine 1.025 (1.005-1.025); UMIC TRIGGER UA YES; Urine Blood Negative (Negative); Urine Ketones Negative (Negative); Urine Protein Negative (Neg-Trace)
[2023-06-19 11:45] LABS: Bacteria Urine None Seen (None Seen); Hyaline Casts Urine 0-2 /LPF (0-2); RBC Urine 0-2 /HPF (0-2); Squamous Epithelial Cell Urine 0-2 /HPF (0-2); WBC Urine 0-5 /HPF (0-5)
[2023-06-19 11:52] LABS: Estimated Average Glucose 123 mg/dL; Hemoglobin A1c % 5.9 % (<6.0)
[2023-06-19 12:32] LABS: Creatinine Urine 174.75 mg/dL; Microalbum/Creatinine Ratio Ur 5.7 ug/mg cr (<30)
[2023-06-19 12:49] LABS: Alanine Aminotransferase 23 U/L (0-31); Albumin Level 4.1 g/dL (3.5-5.0); Alkaline Phosphatase 58 U/L (39-117); Anion Gap 10 (12-20); Aspartate Amino Transferase 21 U/L (5-31); Bilirubin Total 0.4 mg/dL (0.0-1.0); Blood Urea Nitrogen 12 mg/dL (9-16); Calcium 9.3 mg/dL (8.4-10.2); Carbon Dioxide 26 mmol/L (22-29); Chloride 109 mmol/L (96-108); Cholesterol 170 mg/dL (<200); Estimated Glomerular Filt Rate > 60; Glucose Fasting 90 mg/dL (60-99); HDL Cholesterol 63 mg/dL (>40); LDL Cholesterol Calculated 89 mg/dL (<100); Potassium 4.1 mmol/L (3.3-5.1); Sodium 141 mmol/L (135-145); TSH reflex Free T4 1.14 uIU/mL (0.32-4.0); Total Protein 7.3 g/dL (6.5-8.0); Triglycerides 94 mg/dL (<150)
== END 2023-06-19 09:02 | disposition home or self-care (01) ==
LOC: HO.WFDLDS 09:01
PROVIDERS: Visit Provider Family Medicine
DX: Z00.00 Encounter for general adult medical examination without abnormal findings (principal); I10 Essential (primary) hypertension; R73.01 Impaired fasting glucose
CPT/HCPCS: 36415; 80053; 80061; 81001; 82043; 82570; 83036; 84443

== ENCOUNTER 2023-11-14 15:38 | Outpatient (AMB) | payer BC, SELFPAY ==
--- NOTE | 2023-11-14 16:30 | A.OFFPC_ITS ---
Vital Signs 11/14/23 16:38 Height 5 ft 2 in Weight 184 lb 8 oz BMI 33.7 BP 110/80 Blood Pressure Location Lt brachial Position Right Lateral Respiration 16 Pulse 82 Pulse Source Pulse Oximeter Temp 98 F Temp Source Tympanic Pulse Oximetry (%) 97 Oxygen Delivery Method Room Air Intake Visit Reasons: CPE Intake Note: follow up for labs and CPE Allergies ibuprofen [Ibuprofen] Allergy (Mild, Verified 11/14/23 16:33) RASH Tobacco use date assessed: 06/15/22 Dental Screening Dental Screen Date: 11/14/23 Did you have a dental visit in the last 12 months?: Yes Did you have a dental problem in the last 6 months where you did not have access to dental care?: No Was dental information given to patient?: Patient has dentist HPI HPI Comments History of Present Illness Details 48 y/o female presents for a CPE with f/ u labs and health maintenance. Labs were drawn 06/19/23. Reviewed labs with pt. A1c 5.9%. Triglycerides 94. TC 170. LDL 89. HDL 63. She is on artovastatin 20mg. TSH 1.14. Blood pressure today 110/80, 82p. She is on losartan 50mg, verapamil 240mg. Recent pap smear which was fine per pt. Exercises once a week. [facility] Medical History (Updated 05/22/23 @ 08:38 by Patrica Bose PA-C) Pre-diabetes Elevated cholesterol HTN (hypertension) No pertinent past medical history Surgical History Hx of colonoscopy History of bilateral tubal ligation No pertinent past surgical history Social History Housing: House Comment: mild cramping-on menses Patient Tobacco Use Status: Never used Tobacco e-Cigarette/Vaping Use: Never Used Second Hand Smoke Exposure: Yes (sometimes at work ) service: No Current occupational status: employed Current occupation: [employer] Current occupational exposures/hazards: No Cognitive needs: No Hearing needs: No Vision needs: No Questionnaire PHQ-9 Over the last 2 weeks, how often have you been bothered by any of the following problems? 1. Little interest or pleasure in doing things: not at all 2. Feeling down, depressed, or hopeless: not at all 3. Trouble falling or staying asleep, or sleeping too much: not at all 4. Feeling tired or having little energy: not at all 5. Poor appetite or overeating: not at all 6. Feeling bad about yourself - or that you are a failure or have let yourself or your family down: not at all 7. Trouble concentrating on things, such as reading the newspaper or watching television: not at all 8. Moving or speaking so slowly that other people could have noticed. Or the opposite - being so fidgety or restless that you have been moving around a lot more than usual: not at all 9. Thoughts that you would be better off or of hurting yourself in some way: not at all Total score: 0 Depression Screening Interpretation: Negative Depression Screening Done: Yes [id number] - PHQ-9 Billing: Yes Source: Developed by Drs. Karel Ross, Ageuda Neves, Reginaldo Ramirez and colleagues, with an educational jason from [employer]. Thrive Questionnaire Date Thrive assessed: 11/14/23 I am a: Patient What is your living situation today?: I have a steady place to live Within the past 12 months, did the food you bought not last and you didn't have the money to get more?: Never true Within the past 12 months, did you worry whether your food would run out before you got money to buy more?: Never true Do you have trouble paying for medicines?: No Do you have trouble getting transportation to medical appointments?: No Do you have trouble paying your heating and electricity bill?: No Do you have trouble taking care of your child, family member or friend?: No Do you have trouble with day-to-day activities such as bathing, preparing meals, shopping, managing finances, etc.?: No Are you currently unemployed and looking for a job?: No Are you interested in more education?: No Please select the resources that you would like help with: None Currently or been in a relationship where the following occur: No concerns reported THRIVE Score: 0 AUDIT C Alcohol Use Questionnaire (AUDIT-C) 1. How often do you have a drink containing alcohol?: Never 3. How often do you have six or more drinks on one occasion?: Never Total Score: 0 Score Reviewed/Action Taken: Yes FRANCISCA-7 AMB Questionnaire FRANCISCA-7 Date FRANCISCA - 7 assessed: 11/14/23 Feeling nervous, anxious, or on edge: 0 = Not at all Not being able to stop or control worryin = Not at all Worrying too much about different things: 0 = Not at all Trouble relaxin = Not at all Being so restless that it is hard to sit still: 0 = Not at all Becoming easily annoyed or irritable: 0 = Not at all Feeling afraid as if something awful might happen: 0 = Not at all Total FRANCISCA-7 score (0-4 normal; 5-9 mild; 10-14 moderate; 15-21 severe): 0 Source: Developed by Drs. Karel Ross, Agueda Neves, Reginaldo Ramirez and colleagues, with an educational jason from [employer]. FRANCISCA-7 Assessment Billing FRANCISCA-7 Assessment Tool: FRANCISCA-7 Assessment 36284 Review of Systems Const Denies chills, Denies fatigue, Denies fever(s), Denies headache(s) and Denies weakness Eyes Denies change in vision ENT Denies dizziness, Denies headache(s), Denies hearing loss, Denies nasal congestion, Denies sinus pain, Denies sinus pressure and Denies sore throat Card Denies chest pain, Denies lightheadedness, Denies dyspnea and Denies other (palpitations) Resp Denies cough, Denies dyspnea and Denies wheezing GI Denies abdominal pain, Denies melena, Denies hematochezia, Denies change in bowel habits, Denies dyspepsia and Denies nausea Denies hematuria and Denies dysuria Musc Denies abnormal gait, Denies myalgias, Denies arthralgias, Denies numbness and Denies tingling Skin/Breast Denies rash, Denies unusual bruising and Denies wounds Neuro Denies abnormal gait, Denies dizziness, Denies headache(s), Denies memory loss, Denies numbness, Denies Sensory deficit (Neuro), Denies tingling and Denies weakness Psych Denies anxiety, Denies depression and Denies memory loss Endo Denies cold intolerance, Denies fatigue, Denies heat intolerance, Denies polydipsia and Denies polyuria Scott/Lymph Denies easy bleeding and Denies easy bruising Aller/Immun Denies wheezing Physical exam (Primary Care) Vital Signs: Last Vital Signs Temp 98 F 11/14/23 16:38 Pulse 82 11/14/23 16:38 Resp 16 11/14/23 16:38 BP 110/80 11/14/23 16:38 Pulse Ox 97 11/14/23 16:38 Oxygen Delivery Method Room Air 11/14/23 16:38 BMI result Body Mass Index 33.7 Tobacco/Smoking Status: Tobacco use Status Tobacco use date assessed 06/15/22 11/14/23 16:30 Patient Tobacco Use Status Never used Tobacco 11/14/23 16:30 e-Cigarette/Vaping Use Never Used 11/14/23 16:30 PHQ-9: PHQ-9 Score PHQ-9: Total score 0 11/14/23 17:04 Depression Screening Interpretation: Negative Thrive Assessment: Date of Thrive Assessment Date Thrive assessed 11/14/23 11/14/23 16:41 Currently or been in a relationship where the following occur: No concerns reported Const General: no acute distress, well developed, alert and awake Nutritional Appearance: well nourished Orientation/consciousness: patient oriented x3 HENMT Head: Yes normocephalic and Yes atraumatic Ears: hearing grossly normal bilaterally and TM's normal bilaterally General nose exam: Normal external nose present and Normal nares present Mouth: Normal oral and palatal mucosa present and moist mucous membranes Teeth and gingiva: dentition normal Throat: Yes posterior oropharynx normal Eyes General: appearance normal, both eyes and all related structures Pupils: Equal, round and reactive pupils present and Pupil accommodation reflex normal EOM: EOMs intact bilaterally Neck Neck: Yes normal visual inspection, Yes no lymphadenopathy and Yes trachea midline Thyroid: Thyroid normal Carotids: no bruits Lymphatic: no lymphadenopathy noted Chest Chest palpation & inspection: normal inspection of the chest Resp Effort & Inspection: normal respiratory effort Auscultation: clear to auscultation bilaterally Cardio Rate: regular rate Rhythm: regular rhythm Heart sounds: S1 normal heart sound present, S2 normal heart sound present, no gallops, no murmurs and no rubs Bruits: no abdominal aortic bruits and no carotid bruits GI Palpation (GI): No Abdominal aortic bruit present, Soft to palpation, nontender, No hepatosplenomegaly present and No Rebound tenderness present Auscultation: normal bowel sounds General: Yes no CVA tenderness Back/Spine/Pelvis Back: no CVA tenderness Cervical Spine: cervical ROM normal and No Cervical spine tenderness Thoracic/Lumbar Spine: thoraco-lumbar ROM normal, No pain with thoraco-lumbar ROM, No thoracic spinal tenderness and No lumbar spinal tenderness Skin Lesions: no lesions Rashes: no rashes Trauma: no lacerations or abrasions Wounds: no wounds Nails: normal Neuro General: patient oriented x3 Cranial nerves: Yes Equal, round and reactive pupils present Cognition (Neuro): normal cognition Gait exam (Neuro): Normal gait present Motor exam (neuro): 5/5 motor strength present throughout Sensory Exam: No Sensory deficit (Neuro) Deep tendon reflexes (DTR's): Right patellar reflex intensity grade: 2+ and Left patellar reflex intensity grade: 2+ Extrem General: Yes normal to inspection and No edema Psych Appearance: grossly normal Affect: normal affect Attitude: cooperative Thought process: Normal thought process present Assessment and Plan Assessment & Plan (1) Adult general medical exam: Code(s): Z00.00 - Encounter for general adult medical examination without abnormal findings Plan: 48-year-old?female?presents?for?complete?physical?exam Encouraged?healthy?diet?with?active?lifestyle?and?plenty?of?exercise (2) Hypercholesterolemia: Code(s): E78.00 - Pure hypercholesterolemia, unspecified Plan: TC?and?LDL?cholesterol?are?controlled?on?atorvastatin Continue?current?medication (3) Pre-diabetes: Code(s): R73.03 - Prediabetes Plan: Encouraged?diet?low?in?sugars?and?starches (4) Essential hypertension: Code(s): I10 - Essential (primary) hypertension Plan: Blood?pressure?is?well?controlled?on?verapamil?and?losartan. Continue?current?medication (5) Breast cancer screening by mammogram: Code(s): Z12.31 - Encounter for screening mammogram for malignant neoplasm of breast Plan: Patient?had?recent?mammogram.??I?do?not?have?records?and?will?request?them?from? [facility] (6) Screening for cervical cancer: Code(s): Z12.4 - Encounter for screening for malignant neoplasm of cervix Plan: Patient?had?recent?Pap?smear?and?I?do? not?have?records.??She?says?that?this?was?recent?and?was?normal. Likely?up-to-date.??Will?request?records (7) Screening for colon cancer: Code(s): Z12.11 - Encounter for screening for malignant neoplasm of colon Plan: Patient?had?colonoscopy?this?year?and?was?told?to?follow-up?in?3?years. Up-to-date. Medications: Refilled atorvastatin 20 mg PO BEDTIME 30 days 30 tabs 0RF Coding Level of Care Code Est Pt Level 3 (35882) Est Pt Prev Care 40-64y(07298) Diagnoses Adult general medical exam Z00.00 Hypercholesterolemia E78.00 Pre-diabetes R73.03 Essential hypertension I10 Breast cancer screening by mammogram Z12.31 Screening for cervical cancer Z12.4 Screening for colon cancer Z12.11 Additional Codes FRANCISCA-7 Assessment Billing - FRANCISCA-7 Assessment Tool: FRANCISCA-7 Assessment 22528 ([id number])
[2023-11-14 16:38] VITALS: BP 110/80; PULSE 82; RESP 16; TEMP 36.6; O2SAT 97; BMI 33.7
== END 2023-11-14 17:05 | disposition home or self-care (01) ==
PROVIDERS: PCP Family Medicine; Visit Provider Family Medicine
DX: Z00.00 Encounter for general adult medical examination without abnormal findings (principal); E78.00 Pure hypercholesterolemia, unspecified; R73.03 Prediabetes; I10 Essential (primary) hypertension
CPT/HCPCS: 99396

== ENCOUNTER 2024-06-11 08:30 | Outpatient (AMB) | payer BC, SELFPAY ==
--- NOTE | 2024-06-11 08:47 | MHC.PC.OV ---
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 She?is?taking?verapamil?and?losartan?as?prescribed. No?problems?with?these?medications She?is?also?again?wondering?if?she?can?discontinue?atorvastatin. She?is?taking?vitamin-D.??No?recent?vitamin-D?level [facility] Medical History (Updated 06/11/24 @ 09:26 by Maurice Villagomez MD) Pre-diabetes Elevated cholesterol HTN (hypertension) No pertinent past medical history Surgical History Hx of colonoscopy History of bilateral tubal ligation No pertinent past surgical history Social History Housing: House Comment: mild cramping-on menses Patient Tobacco Use Status: Never used Tobacco e-Cigarette/Vaping Use: Never Used Second Hand Smoke Exposure: Yes (sometimes at work ) service: No Current occupational status: employed Current occupation: [employer] Current occupational exposures/hazards: No Cognitive needs: No Hearing needs: No Vision needs: No Questionnaire PHQ-9 Over the last 2 weeks, how often have you been bothered by any of the following problems? 1. Little interest or pleasure in doing things: not at all 2. Feeling down, depressed, or hopeless: not at all 3. Trouble falling or staying asleep, or sleeping too much: not at all 4. Feeling tired or having little energy: not at all 5. Poor appetite or overeating: not at all 6. Feeling bad about yourself - or that you are a failure or have let yourself or your family down: not at all 7. Trouble concentrating on things, such as reading the newspaper or watching television: not at all 8. Moving or speaking so slowly that other people could have noticed. Or the opposite - being so fidgety or restless that you have been moving around a lot more than usual: not at all 9. Thoughts that you would be better off or of hurting yourself in some way: not at all Total score: 0 Depression Screening Interpretation: Negative Depression Screening Done: Yes 50596 - PHQ-9 Billing: Yes Source: Developed by Drs. Karel Ross, Agueda Neves, Reginaldo Ramirez and colleagues, with an educational jason from [employer]. Thrive Questionnaire Date Thrive assessed: 06/08/24 I am a: Patient What is your living situation today?: I have a steady place to live Within the past 12 months, did the food you bought not last and you didn't have the money to get more?: I choose not to answer this question Within the past 12 months, did you worry whether your food would run out before you got money to buy more?: I choose not to answer this question Do you have trouble paying for medicines?: No Do you have trouble getting transportation to medical appointments?: No Do you have trouble paying your heating and electricity bill?: No Do you have trouble taking care of your child, family member or friend?: No Do you have trouble with day-to-day activities such as bathing, preparing meals, shopping, managing finances, etc.?: No Are you currently unemployed and looking for a job?: No Are you interested in more education?: No Please select the resources that you would like help with: None Currently or been in a relationship where the following occur: No concerns reported THRIVE Score: 0 AUDIT C Alcohol Use Questionnaire (AUDIT-C) 1. How often do you have a drink containing alcohol?: Never 3. How often do you have six or more drinks on one occasion?: Never Total Score: 0 FRANCISCA-7 AMB Questionnaire FRANCISCA-7 Date FRANCISCA - 7 assessed: 11/14/23 Feeling nervous, anxious, or on edge: 0 = Not at all Not being able to stop or control worryin = Not at all Worrying too much about different things: 0 = Not at all Trouble relaxin = Not at all Being so restless that it is hard to sit still: 0 = Not at all Becoming easily annoyed or irritable: 0 = Not at all Feeling afraid as if something awful might happen: 0 = Not at all Total FRANCISCA-7 score (0-4 normal; 5-9 mild; 10-14 moderate; 15-21 severe): 0 Source: Developed by Drs. Karel Ross, Agueda Neves, Reginaldo Ramirez and colleagues, with an educational jason from [employer]. Review of Systems Const Denies chills, Denies fatigue, Denies fever(s), Denies headache(s) and Denies weakness ENT Denies dizziness and Denies headache(s) Card Denies chest pain, Denies lightheadedness, Denies dyspnea and Denies other (Palpitations) Resp Denies cough, Denies dyspnea, Denies wheezing and Denies other ( shortness of breath) Musc Denies numbness and Denies tingling Neuro Denies dizziness, Denies headache(s), Denies numbness, Denies tingling, Denies paresthesias and Denies weakness Psych Denies anxiety and Denies depression Endo Denies fatigue Aller/Immun Denies wheezing Physical exam (Primary Care) Vital Signs: Last Vital Signs Temp 97.7 F 06/11/24 08:48 Pulse 68 06/11/24 08:48 Resp 16 06/11/24 08:48 BP 130/74 06/11/24 08:48 Pulse Ox 98 06/11/24 08:48 Oxygen Delivery Method Room Air 06/11/24 08:48 BMI result Body Mass Index 33.4 Tobacco/Smoking Status: Tobacco use Status Tobacco use date assessed 06/15/22 06/11/24 08:51 Patient Tobacco Use Status Never used Tobacco 06/11/24 08:51 e-Cigarette/Vaping Use Never Used 06/11/24 08:51 PHQ-9: PHQ-9 Score PHQ-9: Total score 0 06/11/24 08:51 Depression Screening Interpretation: Negative Thrive Assessment: Date of Thrive Assessment Date Thrive assessed 06/08/24 06/11/24 08:51 Currently or been in a relationship where the following occur: No concerns reported Const General: no acute distress and well developed Nutritional Appearance: well nourished Orientation/consciousness: patient oriented x3 HENMT Head: Yes normocephalic and Yes atraumatic Eyes General: appearance normal, both eyes and all related structures Pupils: Equal, round and reactive pupils present EOM: EOMs intact bilaterally Resp Effort & Inspection: normal respiratory effort Auscultation: clear to auscultation bilaterally Cardio Rate: regular rate Rhythm: regular rhythm Heart sounds: S1 normal heart sound present, S2 normal heart sound present, no gallops, no murmurs and no rubs Neuro General: patient oriented x3 and gait normal Cranial nerves: Yes Equal, round and reactive pupils present Psych Affect: normal affect Coding Level of Care Code Est Pt Level 4 (44525) Diagnoses Essential hypertension I10 Hypercholesterolemia E78.00 Vitamin D deficiency E55.9 Additional Codes PHQ-9 - 34026 - PHQ-9 Billing: Yes ([id number]) Assessment & Plan Assessment & Plan (1) Essential hypertension: Code(s): I10 - Essential (primary) hypertension Category: Medical Plan: Blood?pressure?is?controlled.??Goal?is?less?than?140/90 Continue?current?medication Encouraged?diet?low?in?salt/sodium.??Encouraged?weight?control?and?exercise. (2) Hypercholesterolemia: Code(s): E78.00 - Pure hypercholesterolemia, unspecified Category: Medical Plan: Lipids?were?controlled?at?last?check?and?she?is?on?atorvastatin 20?mg?daily. She?would?like?to decrease?or?discontinue?this?medication?but?will?continue?it?for?now. Will?recheck?lipid?levels?and?discuss?decrease?in?medication?if?we?can. (3) Vitamin D deficiency: Code(s): E55.9 - Vitamin D deficiency, unspecified Category: Medical Plan: No?recent?vitamin-D?level.??Patient?is?taking?5000?IU?vitamin-D?daily Will?check?vitamin-D?level?with?her?next?lab?draw. Orders: Orders Hemoglobin A1c Today R73.01 - Impaired fasting glucose, R73.03 - Prediabetes Comprehensive [place]. Panel Fast Today I10 - Essential (primary) hypertension, Z00.00 - Encounter for general adult medical examination without abnormal findings Microalbumin, Random (w Creat) Today I10 - Essential (primary) hypertension Vitamin D 25-OH Total Today E55.9 - Vitamin D deficiency, unspecified Lipid Panel Today E78.00 - Pure hypercholesterolemia, unspecified, Z00.00 - Encounter for general adult medical examination without abnormal findings
[2024-06-11 08:48] VITALS: BP 130/74; PULSE 68; RESP 16; TEMP 36.5; O2SAT 98; BMI 33.4
--- OUTSIDE RECORDS SUMMARY | 2024-06-11 09:04 | XMS_ITS ---
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 :1975???Age:48 Y???Sex:Female D ate:06/25/2023 [address]: [id number] Pcp:DEZ AHMADI Subjective: * Chief Complaints: * ???1. 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 * Medical History:? Objective: * Vitals:? Assessment: Plan: * Treatment: * Images: Billing Information: * Visit Code:? * Procedure Codes:? * Electronic signature of Edy Shepard MD on 06/11/2024 at 09:04 AM EDT Sign off status: Pending * Appointment Provider:?Aisha Shepard M.D. Date:?06/25/2023 Generated for Barry xiong/Simeon/Reynaldoitting on:?06/11/2024 09:04 AM EDT
--- OUTSIDE RECORDS SUMMARY | 2024-06-11 09:04 | XMS_ITS ---
Author Organization [employer] [facility] Address [address] [place] [address] Care Team Providers Care Community Support Specialist Name Role Phone DEZ AHMADI Primary Care Provider Unavailab eric Aisha Shepard Unavailable [phone] Allergies Allergen (clinical drug ingredient) Drug/Non Drug Allergy documented on EMR Reaction Allergy Type Onset Date Status Motrin Rash Drug Allergy Active Results Component Value Reference Range Notes Urinalysis Reviewed date:09/10/2023 09:27:15 AM Interpretation: Performing Lab: Notes/Report: PH 5.0 PROTEIN Neg GLUCOSE Neg BLOOD Neg [id number] IGP No Culture 30 Plus Reviewed date:09/12/2023 04:26:57 PM Interpretation: Performing Lab:[facility], [address], [address], [place], Phone - [phone], Director - [facility] Notes/Report: Clinical Information:Vaginal/Cervical, LMP: 5/2 024 [id number] Dates / Results....03/21/21 NIL, Neg HPV No. of containers..01 ThinPrep Vial DIAGNOSIS: NEGATIVE FOR IN TRAEPITHELIAL LESION OR MALIGNANCY. Specimen adequacy: Satisfactory for evaluation. Endocervical and/or squamous metaplastic cells (endocervical component) are present. Clinician provided ICD10: Z0 1.419 Performed by: Tex bright, Strip Machine Tender (ASCP) . . Note: The Pap smear is a screening test designed to aid in the detection of premalignant and malignant conditions of the uterine cervix. It is not a diagnostic procedure and should not be used as the sole means of detecting cervical cancer. Both false-positive and false-negative reports do occur. . Test Methodology: [facility] The [employer] Prep(R) Autism Teacher was unable to read this specimen. Therefore a manual review was performed. HPV Aptima Negative Negative This nucleic acid amplification test detects fourteen high-risk HPV types (16,18,31,33,35,39,45,51,52,56,58 ,59,66,68) without differentiation. HPV Genotype Reflex Criteria not met, HPV Genotype not performed. PDF Report Reviewed date:09/12/2023 04:26:34 PM Interpretation: Performing Lab:[facility], [address], [address], [place], Phone - [phone], Director - [facility] Notes/Report: Clinical Information:Vaginal/Cervical, LMP: 07/31 024 [id number] Dates / Results....03/21/21 NIL, Neg HPV No. 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 Physical, Annual ORTHOTIST OR PROSTHETIST Physical 50-59* Medications Medication SIG (Take, Route, Frequency, Duration) Notes Start Date End Date Status Vitamin D3 125 MCG (5000 UT) 1 capsule Orally Once a day Active Verapamil HCl ER 240 MG 1 capsule Orally Once a day for 30 day(s) Active Losartan Potassium 50 MG 1 tablet Orally Once a day for 30 days Active Social History Tobacco Use: Social History Observation Description Date Details (start date - stop date) Never Smoker NA - NA Tobacco Use/Smoking Question Answer Notes Are you a nonsmoker Alcohol Screen (Audit-C) Question Answer Notes Did you have a drink containing alcohol in the p ast year? No Points 0 Interpretation Negative Sexual History Question Answer Notes Had sex in the past 12 months (vaginal, oral, or anal)? Yes Vital Signs Temperature 98.1 degrees Fahrenheit 09/10/19 24 Blood pressure systolic 122 mm Hg 09/10/19 24 Blood pressure diastolic 80 mm Hg 024 Height 63 in 09/10/2023 Weight 180 lbs 09/10/2023 BMI 31.88 kg/m2 09/10/2023 Encounters Encounter Location Date Provider Diagnosis [address] [place] [address] 09/10/2023 Aisha Shepard Encounter for gynecological examination (general) (routine) without abnormal findings Z01.419 ; Encounter for screening mammogram for malignant neoplasm of breast Z12.31 and Dense breasts, unspecified R92.30 Assessments Encounter Date Diagnosis (ICD Code) Assessment Notes Treatment Notes Treatment Clinical Notes Section Notes 09/10/2023 Encounter for gynecological examination (general) (routine) without abnormal findings (ICD-10 - Z01.419) PAP TEST WITH HPV TYPING WAS OBTAINED. 09/10/2023 Encounter for screening mammogram for malignant neoplasm of breast (ICD-10 - Z12.31) REGULAR MAMMOGRAMS AND SBE'S WERE RECOMMENDED. 09/10/2023 Dense breasts, unspecified (ICD-10 - R92.30) DISCUSSED DENSE BREASTS ON MAMMOGRAM AND ITS IMPLICATIONS. 3D MAMMOGRAMS WERE RECOMMENDED. Plan Of Treatment Treatment Notes Assessment Notes Encounter for gynecological examination (general) (routine) without abnormal findings PAP TEST WITH HPV TYPING WAS OBTAINED. Encounter for screening mamm ogram for malignant neoplasm of breast REGULAR MAMMOGRAMS AND SBE'S WERE RECOMMENDED. Dense breasts, unspecified DISCUSSED DENSE BREASTS ON MAMMOGRAM AND ITS IMPLICATIONS. 3D MAMMOGRAMS WERE RECOMMENDED. Pending Test Test Name Order Date MM Digital Mammo Screening 09/10/2023 Next Appt Details Follow Up: 1 Year, Reason: Provider Name:Aisha huerta, 09/11/2024 09:10:00 AM, [employer], [address], [place], [address], Progress Notes * RAFIQ DUBONDOB:1975 ( 48 yo F)Acc No.[id number]:09/10/2023 PROGRESS NOTES Patient:?RAFIQ DUBON Appointment Provider:?Aisha huerta M.D. :1975???Age:48 Y???Sex:Female D ate:09/10/2023 [facility] Pcp:DEZ AHMADI Subjective: * Chief Complaints: * ???Annual ORTHOTIST OR PROSTHETIST PhysicalAnnual ORTHOTIST OR PROSTHETIST Physical 50-59* * HPI: ???New/Follow-up Patient Consult:? PAT'S MENSES ARE COMING AT LONGER INTERVALS.? SHE DENIES HEAVY BLEEDING.? SHE ALSO DENIES HOT FLASHES AND NIGHT SWEATS AND HAS NO DYSPAREUNIA.? S/P BTL. SHE HAS 3 DAUGHTERS, AGES 18. 16 AND 10.? THEY ARE ALL DOING WELL. HER [facility]ST [facility] DONE [facility] 2023 SHOWED DENSE BREASTS AND WAS NORMAL.? SHE HAS NO FAMILY HX OF BREAST, OVARIAN, COLON OR UTERINE CA. HER LAST PAP TEST IN 2020 WAS NEGATIVE AND HPV NEGATIVE. SHE HAD A COLONOSCOPY DONE IN 2023 AND POLYPS WERE EXCISED.? SHE WILL NEED ANOTHER COLONOSCOPY DONE IN 3 YEARS. PFIZER X 2. ???Annual:? Patient presents for annual exam, ages 50-59. 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 * Medical History:? 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 Control:?none.?Menarche?9.?Colonoscopy?05/2023 Q 3 Years, Polyps.?Bone Density:?No.?Gardasil:?No.? * OB History:?Total pregnancies?3.?Total living children?3.? * Surgical History:?Tubal Liga tion 2013 * Hospitalization/Major Diagno stic Procedure:?See Surgical Hx * Family History:?Mother: dece ased, diagnosed with Unspecified heart disease.?Father: , diagnosed with Unspecified heart disease.? * Social History:?Tobacco Use:?Tobacco Use/Smoking?Are you a?nonsmoker ???Sexual History:?Details of Sexual History?Are you sexually active??Yes ?Sexual History?Had sex in the past 12 months (vaginal, oral, or anal)??Yes ???Drugs/Alcohol:?Drugs?Have you used drugs other than those for medical reasons in the past 12 months??No ?Alcohol Screen (Audit-C)?Did you have a drink containing alcohol in the past year??No ?Points?0 ?Interpretation?Negative ???Miscellaneous:?Children: yes, 3. ?Exercise: yes. ?Home smoke detector use: yes. ?Living with: spouse. ?Marital status: . ?Natural support system: yes. 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 ?Sexually active: yes, monogamous relationship. * Medications:?TakingVitamin D 3 125 MCG (5000 UT) Capsule 1 capsule Orally Once a day Losartan Potassium 50 MG Tablet 1 tablet Orally Once a day Verapamil HCl ER 240 MG Capsule Extended Release 24 Hour 1 capsule Orally Once a day Medication List reviewed and reconciled with the patientTaking Vitamin D3 125 MCG (5000 UT) Capsule 1 capsule Orally Once a day Taking Losartan Potassium 50 MG Tablet 1 tablet Orally Once a day Taking Verapamil HCl ER 240 MG Capsule Extended Release 24 Hour 1 capsule Orally Once a day Medication List reviewed and reconciled with the patient * Allergies:?Motrin: Brian Sellers[Allergies Verified] Objective: * Vitals:?Ht: 63 in, Wt:180lbs , BMI:31.88Index, BP:122/80mm Hg, Temp:98.1F. * Examination: ???General Exam: ?CONSTITUTIONAL:?General Appearance:?alert, in no acute distress, normal, well nourished ?NECK/THYROID:?Inspection/Palpation:?normal ?Thyroid:?normal size and shape ?RESPIRATORY:?Auscultation: clear to auscultation bilaterally, Respiratory Effort: normal.?CARDIOVASCULAR:?Auscultation: regular rate and rhythm.?BREAST, Right:?Inspection/Palpation:?no discharge, no masses present, no nipple retraction, no skin changes, no skin dimpling, no tenderness, no lymphadenopathy, no axillary mass, no axillary tenderness ?BREAST, Left:?Inspection/Palpation:?no discharge, no masses present, no nipple retraction, no skin changes, no skin dimpling, no tenderness, no lymphadenopathy, no axillary mass, no axillary tenderness ?GASTROINTESTINAL:?Abdomen:?no masses, nontender, nondistended ?Liver and Spleen:?normal ?Hernias:?no hernias present, no inguinal adenopathy ?MUSCULOSKELETAL:?Inspection/Palpation:?no clubbing, cyanosis, or edema ?SKIN:?Skin:?normal ?NEURO/PSYCH:?Orientation:?time , place, person ?Mood/Affect:?normal?Genitourinary: ?EXTERNAL GENITALIA:?External Genitalia:?normal, no lesions ?VAGINA:?Vagina:?normal appearance, no abnormal discharge, no lesions ?BLADDER:?Bladder:?no mass, nontender ?URETHRA:?Urethra:?no erythema or lesions present ?CERVIX:?Cervix:?no lesions, nontender ?UTERUS:?Uterus:?nontender, normal contour, normal mobility, normal size ?ADNEXA:?Adnexa:?no masses, no tenderness ?ANUS AND PERINEUM:?Anus/Perineum:?visually normal??? Assessment: * Assessment: 1.?Encounter for gynecologic al examination (general) (routine) without abnormal findings - Z01.419?2.?Encounter for screening mammogram for malignant neoplasm of breast - Z12.31?3.?Dense breasts, unspecified - R92.30? Plan: * Treatment: ? Value Reference Range ?PH 5.0 * ?PROTEIN Neg * ?GLUCOSE Neg * ?BLOOD Neg * DIONISIO Jewell 09/10/2023 09:23:05 AM EDT > Notes: PAP TEST WITH HPV TYPING WAS OBTAINED.??2.?Encounter for screening mammogram for malignant neoplasm of breast?Imaging: MM Digital Mammo Screening Notes: REGULAR MAMMOGRAMS AND SBE'S WERE RECOMMENDED.??3.?Dense breasts, unspecified? Notes: DISCUSSED DENSE BREASTS ON MAMMOGRAM AND ITS IMPLICATIONS. 3D MAMMOGRAMS WERE RECOMMENDED.?? * Procedure Codes:? * Preventive Medicine:? ??YOUR PREVENTIVE WELLNESS PLAN:?Osteoporosis prevention?Calcium, D, strength training.?Breast Cancer Screening (Mammogram):?annually.?Cervical Cancer Screening (Pap Smear):?q 3 years with HPV screen.?Colorectal Cancer Screening:?q 10 years.? * Follow Up:?1 Year * Images: Billing Information: * Visit Code:? 21106 Preventive Care New Pt. Age 40-64. 90027 Preventive Care Est Pt. Age 40-64. * Procedure Codes:? * Sign off status: Completed true * Appointment Provider:?Aisha Shepard M.D. Date:?09/10/2023 Generated for Barry xiong/Simeon/Leno on:?06/11/2024 09:04 AM EDT History and Physical Notes * HPI (History of Present Illness) Category Sub-Category Detail Notes Category Not es New/Follow-up Patient Consult PAT'S MENSES ARE COMING AT LONGER INTERVALS. SHE DENIES HEAVY BLEEDING. SHE ALSO DENIES HOT FLASHES AND NIGHT SWEATS AND HAS NO DYSPAREUNIA. S/P BTL. SHE HAS 3 DAUGHTERS, AGES 18. 16 AND 10. THEY ARE ALL DOING WELL. HER [facility]ST [facility] 20[facility] SHOWED DENSE BREASTS AND WAS NORMAL. SHE HAS NO FAMILY HX OF BREAST, OVARIAN, COLON OR UTERINE CA. HER LAST PAP TEST IN 2020 WAS NEGATIVE AND HPV NEGATIVE. SHE HAD A COLONOSCOPY DONE IN 2023 AND POLYPS WERE EXCISED. SHE WILL NEED ANOTHER COLONOSCOPY DONE IN 3 YEARS. PFIZER X 2. 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 Examination Category Sub-Category Detail Notes Category Not es General Exam CONSTITUTIONAL: General Appearan ce:: alert, in no acute distress, normal, well nourished NECK/THYROID: Thyroid:: normal size and shape Inspection/Palpation:: normal RESPIRATORY: Auscultation: clear to auscultation bilaterally, Respiratory Effort: normal CARDIOVASCULAR: Auscultation: regula r rate and rhythm GASTROINTESTINAL: Hernias:: no hernias present, no inguinal adenopathy Liver and Spleen:: normal Abdomen:: no masses, nontender, nondiste nded MUSCULOSKELETAL: Inspection/Palpation:: no clubb ing, cyanosis, or edema SKIN: Skin:: normal NEURO/PSYCH: Mood/Affect:: normal Orientation:: time , place, person BREAST, Right: Inspection/Palpation :: no discharge, no masses present, no nipple retraction, no skin changes, no skin dimpling, no tenderness, no lymphadenopathy, no axillary mass, no axillary tenderness BREAST, Left: Inspection/Palpation :: no discharge, no masses present, no nipple retraction, no skin changes, no skin dimpling, no tenderness, no lymphadenopathy, no axillary mass, no axillary tenderness Genitourinary EXTERNAL GENITALIA: External Genitalia:: nor mal, no lesions VAGINA: Vagina:: normal appearance, no a bnormal discharge, no lesions BLADDER: Bladder:: no mass, nontender URETHRA: Urethra:: no erythema or lesions present CERVIX: Cervix:: no lesions, nontender UTERUS: Uterus:: nontender, normal conto ur, normal mobility, normal size ADNEXA: Adnexa:: no masses, no tendernes s ANUS AND PERINEUM: Anus/Perineum:: visually norm al
--- OUTSIDE RECORDS SUMMARY | 2024-06-11 09:04 | XMS_ITS | Patient Health Record ---
Author Organization [employer] [facility] Address [address] [place] [address] Care Team Providers Care Field Services Manager Name Role Phone DAIANA DEZ Primary Care Provider Unavailab Aisha Randall Unavailable [phone] Allergies Allergen (clinical drug ingredient) Drug/Non Drug Allergy documented on EMR Reaction Allergy Type Onset Date Status Motrin Rash Drug Allergy Active Results Component Value Reference Range Notes Urinalysis Reviewed date:09/10/2023 09:27:15 AM Interpretation: Performing Lab: Notes/Report: PH 5.0 PROTEIN Neg GLUCOSE Neg BLOOD Neg [id number] IGP No Culture 30 Plus Reviewed date:09/12/2023 04:26:57 PM Interpretation: Performing Lab:[facility], [address], [address], [place], Phone - [phone], Director - [facility] Notes/Report: Clinical Information:Vaginal/Cervical, LMP: 5/2 024 [id number] Dates / Results....03/21/21 NIL, Neg HPV No. of containers..01 ThinPrep Vial DIAGNOSIS: NEGATIVE FOR IN TRAEPITHELIAL LESION OR MALIGNANCY. Specimen adequacy: Satisfactory for evaluation. Endocervical and/or squamous metaplastic cells (endocervical component) are present. Clinician provided ICD10: Z0 1.419 Performed by: Tex bright, Field Training Agent (ASCP) . . Note: The Pap smear is a screening test designed to aid in the detection of premalignant and malignant conditions of the uterine cervix. It is not a diagnostic procedure and should not be used as the sole means of detecting cervical cancer. Both false-positive and false-negative reports do occur. . Test Methodology: [facility] The Open[employer] Prep(R) Leather Grader was unable to read this specimen. Therefore a manual review was performed. HPV Aptima Negative Negative This nucleic acid amplification test detects fourteen high-risk HPV types (16,18,31,33,35,39,45,51,52,56,58 ,59,66,68) without differentiation. HPV Genotype Reflex Criteria not met, HPV Genotype not performed. PDF Report Reviewed date:09/12/2023 04:26:34 PM Interpretation: Performing Lab:[facility] [place], [address], [address], [place], Phone - [phone], Director - [facility] Notes/Report: Clinical Information:Vaginal/Cervical, LMP: 07/31 024 [id number] Dates / Results....03/21/21 NIL, Neg HPV No. of containers..01 ThinPrep Vial Reason For Referral No Information Medications Medication SIG (Take, Route, Frequency, Duration) [...] 12 months (vaginal, oral, or anal)? Yes Problems Problem Type SNOMED Code ICD Code Onset Dates Problem Status W/U Status Risk Notes Problem Essential hypertension (01470122) Essential (primary) hypertension (I10) Active confirmed Vital Signs Temperature 98.1 degrees Fahrenheit 09/10/2023 Blood pressure diastolic 80 mm Hg 09/10/2023 Height 63 in 09/10/2023 Blood pressure systolic 122 mm Hg 09/10/2023 Weight 180 lbs 09/10/2023 BMI 31.88 kg/m2 09/10/2023 Encounters Encounter Location Date Provider Diagnosis Total [address] [place] [address] 09/10/2023 Aisha Shepard Encounter for gynecological examination [...] 3D MAMMOGRAMS WERE RECOMMENDED. Plan Of Treatment Pending Test Test Name Order Date Urinalysis 03/21/2021 DIAGNOSTIC MAMMOGRAM, RIGHT BREAST 03/21 MM Digital Mammo Screening 06/21/2022 MM Digital Mammo Screening 09/10/2023 Right Breast Ultrasound 03/21/2021 DIGITAL SCREENING MAMMO LEFT BREAST 03/02 Next Appt Details Provider Name:Aisha huerta, 09/11/2024 09:10:00 AM, [address], [address], [place], [address], Insurance Providers Payer Name Payer Address Payer Phone Subscriber Number Group Number Insured Name Patient Relationship to Insured Coverage Start Date Coverage End Date [employer] [place] [address] [place] [address] [id number] ZEE DUBON Spouse - patient is the spouse of the insured Medical (General) History Medical History History ICD Code Essential (primary) hypertension I10 Inconclusive mammogram R92.2 Unspecified lump in the right breast, up per outer quadrant N63.11 Mammographic heterogeneous density, bila teral breasts R92.333 Surgical History Surgery Date(Month/Year) Tubal Ligation 2013 Hospitalization History Reason Date(Month/Year) See Surgical Hx
== END 2024-06-11 09:22 | disposition home or self-care (01) ==
LOC: HO.HMCFM 08:31
PROVIDERS: PCP Family Medicine; Visit Provider Family Medicine
DX: I10 Essential (primary) hypertension (principal); E78.00 Pure hypercholesterolemia, unspecified; E55.9 Vitamin D deficiency, unspecified

== ENCOUNTER → 2024-06-11 08:30 | Outpatient (BNVA) | payer BC, SELFPAY | PROVIDERS: PCP Family Medicine; Visit Provider Family Medicine | DX: I10 Essential (primary) hypertension (principal); E78.00 Pure hypercholesterolemia, unspecified; E55.9 Vitamin D deficiency, unspecified; Z79.899 Other long term (current) drug therapy | CPT/HCPCS: 96127 ==

== ENCOUNTER 2024-08-26 08:01 | Outpatient (REF) | payer BC, SELFPAY ==
--- OUTSIDE RECORDS SUMMARY | 2024-08-26 08:07 | XMS_ITS | Patient Health Record ---
Author Organization [employer] [facility] Address [address] [place] [address] Care Team Providers Care Commissary Manager Name Role Phone DEZ AHMADI Primary Care Provider Unavailab Aisha Randall Unavailable [phone] Allergies Allergen (clinical drug ingredient) Drug/Non Drug Allergy documented on EMR Reaction Allergy Type Onset Date Status Motrin Rash Drug Allergy Active Results Component Value Reference Range Notes PDF Report Reviewed date:09/12/2023 04:26:34 PM Interpretation: Performing Lab:[facility], [address], [address], [place], Phone - [phone], Director - [facility] Notes/Report: Clinical Information:Vaginal/Cervical, LMP: 07/31 [id number] Dates / Results....03/21/21 NIL, Neg HPV No. of containers..01 ThinPrep Vial Urinalysis Reviewed date:09/10/2023 09:27:15 AM Interpretation: Performing Lab: Notes/Report: PH 5.0 PROTEIN Neg GLUCOSE Neg BLOOD Neg [id number] IGP No Culture 30 Plus Reviewed date:09/12/2023 04:26:57 PM Interpretation: Performing Lab:[facility], [address], [address], [employer] [place], Phone - [phone], Director - [facility] Notes/Report: Clinical Information:Vaginal/Cervical, LMP: 07/31 024 [id number] Dates / Results....03/21/21 NIL, Neg HPV No. of containers..01 ThinPrep Vial DIAGNOSIS: NEGATIVE FOR IN TRAEPITHELIAL LESION OR MALIGNANCY. Specimen adequacy: Satisfactory for evaluation. Endocervical and/or squamous metaplastic cells (endocervical component) are present. Clinician provided ICD10: Z0 1.419 Performed by: Tex bright, Diesel Powerplant Mechanic Helper (ASCP) . . Note: The Pap smear is a screening test designed to aid in the detection of premalignant and malignant conditions of the uterine cervix. It is not a diagnostic procedure and should not be used as the sole means of detecting cervical cancer. Both false-positive and false-negative reports do occur. . Test Methodology: [facility] The Thin Prep(R) Multi Punch Operator was unable to read this specimen. Therefore a manual review was performed. HPV Aptima Negative Negative This nucleic acid amplification test detects fourteen high-risk HPV types (16,18,31,33,35,39,45,51,52,56,58 ,59,66,68) without differentiation. HPV Genotype Reflex Criteria not met, HPV Genotype not performed. Reason For Referral No Information Medications Medication [...] W/U Status Risk Notes Problem Essential hypertension (92740898) Essential (primary) hypertension (I10) Active confirmed Vital Signs Temperature 98.1 degrees Fahrenheit 09/10/2023 Blood pressure diastolic 80 mm Hg 09/10/2023 Height 63 in 09/10/2023 Blood pressure systolic 122 mm Hg 09/10/2023 Weight 180 lbs 09/10/2023 BMI 31.88 kg/m2 09/10/2023 Encounters Encounter Location Date Provider Diagnosis Total [address] [place] [address] 09/10/2023 Aisha Shepard Encounter for gynecological examination [...] Provider Name:Aisha huerta, 09/11/2024 09:10:00 AM, [address], [address], [place], [address], Insurance Providers Payer Name Payer Address Payer Phone Subscriber Number Group Number Insured Name Patient Relationship to Insured Coverage Start Date Coverage End Date [employer] [place] [address] [place] [address] [id number] ZEE DUBON Spouse - patient is the [...]
[2024-08-26 11:40] LABS: Estimated Average Glucose 128 mg/dL; Hemoglobin A1C 148.9473 umol/L; Hemoglobin A1c % 6.1 % (<6.0); Total Hemoglobin (HGBA1C) 3478.5675 umol/L
[2024-08-26 12:06] LABS: Alanine Aminotransferase 20 U/L (0-31); Albumin Level 4.4 g/dL (3.5-5.0); Alkaline Phosphatase 65 U/L (39-117); Anion Gap 10 (12-20); Aspartate Amino Transferase 27 U/L (5-31); Bilirubin Total 0.4 mg/dL (0.0-1.0); Blood Urea Nitrogen 9 mg/dL (9-16); Calcium 9.3 mg/dL (8.4-10.2); Carbon Dioxide 28 mmol/L (22-29); Chloride 105 mmol/L (96-108); Cholesterol 231 mg/dL (<200); Estimated Glomerular Filt Rate > 60; Glucose Fasting 94 mg/dL (60-99); HDL Cholesterol 68 mg/dL (>40); LDL Cholesterol Calculated 144 mg/dL (<100); Potassium 3.8 mmol/L (3.3-5.1); Sodium 139 mmol/L (135-145); Total Protein 7.4 g/dL (6.5-8.0); Triglycerides 99 mg/dL (<150)
[2024-08-26 12:29] LABS: Creatinine Urine 130.63 mg/dL; Microalbum/Creatinine Ratio Ur 5.3 ug/mg cr (<30)
== END 2024-08-26 08:02 | disposition home or self-care (01) ==
LOC: HO.WFDLDS 08:01
PROVIDERS: Visit Provider Family Medicine
DX: Z00.00 Encounter for general adult medical examination without abnormal findings (principal); R73.01 Impaired fasting glucose; R73.03 Prediabetes; I10 Essential (primary) hypertension; E78.00 Pure hypercholesterolemia, unspecified; E55.9 Vitamin D deficiency, unspecified
CPT/HCPCS: 36415; 80053; 80061; 82043; 82306; 82570; 83036

== ENCOUNTER 2024-08-31 08:27 | Outpatient (AMB) | payer BC, SELFPAY ==
--- NOTE | 2024-08-31 08:36 | MHC.PC.OV ---
Vital Signs 08/31/24 08:38 Height 5 ft 2 in Weight 184 lb 4 oz BMI 33.7 BP 120/80 Blood Pressure Location Rt brachial Position Sitting Respiration 12 Pulse 91 Pulse Source Pulse Oximeter Temp 99.2 F Temp Source Oral Pulse Oximetry (%) 98 Oxygen Delivery Method Room Air Intake Visit Reasons: f/u on blood work Intake Note: patient is scheduled to review lab results with pcp Film Splicer Required: No Allergies ibuprofen [Ibuprofen] Allergy (Mild, Verified 08/31/24 08:37) RASH Medication List - Last Reconciled 08/31/24 by Maurice Villagomez MD ascorbate calcium (vitamin C) 500 mg PO DAILY atorvastatin 20 mg PO BEDTIME 90 days cholecalciferol (vitamin D3) 125 mcg PO DAILY losartan 50 mg PO DAILY 90 days multivitamin (Daily Multi-Vitamin tablet) 1 tab PO DAILY verapamil ER 240 mg PO DAILY Tobacco use date assessed: 06/15/22 Dental Screening Dental Screen Date: 11/14/23 HPI f/u on blood work HPI Details To?follow-up?hypertension?and?labs She?is?taking?losartan?and verapamil Blood?pressure?120/80 She?says?she?started?a?keto?diet?and?is?eating?lots?more?need?a?things TC?and?LDL?cholesterol?are?increased Also,?her?A1c?increased?from?5.9%?to?6.1%. Vitamin-D?is?within?range No?new?complaints.??Patient?feels?well. [facility] Medical History (Updated 06/11/24 @ 09:26 by Maurice Villagomez MD) Pre-diabetes Elevated cholesterol HTN (hypertension) No pertinent past medical history Surgical History Hx of colonoscopy History of bilateral tubal ligation No pertinent past surgical history Social History Housing: House Comment: mild cramping-on menses Patient Tobacco Use Status: Never used Tobacco e-Cigarette/Vaping Use: Never Used Second Hand Smoke Exposure: Yes (sometimes at work ) service: No Current occupational status: employed Current occupation: [employer] Current occupational exposures/hazards: No Cognitive needs: No Hearing needs: No Vision needs: No Questionnaire Thrive Questionnaire Date Thrive assessed: 06/08/24 I am a: Patient What is your living situation today?: I have a steady place to live Within the past 12 months, did the food you bought not last and you didn't have the money to get more?: I choose not to answer this question Within the past 12 months, did you worry whether your food would run out before you got money to buy more?: I choose not to answer this question Do you have trouble paying for medicines?: No Do you have trouble getting transportation to medical appointments?: No Do you have trouble paying your heating and electricity bill?: No Do you have trouble taking care of your child, family member or friend?: No Do you have trouble with day-to-day activities such as bathing, preparing meals, shopping, managing finances, etc.?: No Are you currently unemployed and looking for a job?: No Are you interested in more education?: No Please select the resources that you would like help with: None Currently or been in a relationship where the following occur: No concerns reported THRIVE Score: 0 FRANCISCA-7 AMB Questionnaire FRANCISCA-7 Date FRANCISCA - 7 assessed: 11/14/23 Source: Developed by Drs. Karel Ross, Agueda Neves, Reginaldo Ramirez and colleagues, with an educational jason from [employer]. Review of Systems Const Denies chills, Denies fatigue, Denies fever(s), Denies headache(s) and Denies weakness ENT Denies dizziness and Denies headache(s) Card Denies chest pain, Denies lightheadedness, Denies dyspnea and Denies other (Palpitations) Resp Denies cough, Denies dyspnea, Denies wheezing and Denies other ( shortness of breath) Musc Denies numbness and Denies tingling Neuro Denies dizziness, Denies headache(s), Denies numbness, Denies tingling, Denies paresthesias and Denies weakness Psych Denies anxiety and Denies depression Endo Denies fatigue Aller/Immun Denies wheezing Physical exam (Primary Care) Vital Signs: Last Vital Signs Temp 99.2 F 08/31/24 08:38 Pulse 91 08/31/24 08:38 Resp 12 08/31/24 08:38 BP 120/80 08/31/24 08:38 Pulse Ox 98 08/31/24 08:38 Oxygen Delivery Method Room Air 08/31/24 08:38 BMI result Body Mass Index 33.7 Tobacco/Smoking Status: Tobacco use Status Tobacco use date assessed 06/15/22 08/31/24 08:41 Patient Tobacco Use Status Never used Tobacco 08/31/24 08:41 e-Cigarette/Vaping Use Never Used 08/31/24 08:41 Thrive Assessment: Date of Thrive Assessment Date Thrive assessed 06/08/24 08/31/24 08:41 Currently or been in a relationship where the following occur: No concerns reported Const General: no acute distress and well developed Nutritional Appearance: well nourished Orientation/consciousness: patient oriented x3 HENMT Head: Yes normocephalic and Yes atraumatic Eyes General: appearance normal, both eyes and all related structures Pupils: Equal, round and reactive pupils present EOM: EOMs intact bilaterally Resp Effort & Inspection: normal respiratory effort Auscultation: clear to auscultation bilaterally Cardio Rate: regular rate Rhythm: regular rhythm Heart sounds: S1 normal heart sound present, S2 normal heart sound present, no gallops, no murmurs and no rubs Neuro General: patient oriented x3 and gait normal Cranial nerves: Yes Equal, round and reactive pupils present Psych Affect: normal affect Coding Level of Care Code Est Pt Level 4 (97237) Diagnoses Essential hypertension I10 Hypercholesterolemia E78.00 Pre-diabetes R73.03 Vitamin D deficiency E55.9 Assessment & Plan Assessment & Plan (1) Essential hypertension: Code(s): I10 - Essential (primary) hypertension Category: Medical Plan: Blood?pressure?is?well?controlled.??Goal?is?less?than?140/90 Continue?current?medication (2) Hypercholesterolemia: Code(s): E78.00 - Pure hypercholesterolemia, unspecified Category: Medical Plan: TC?and?LDL?have?risen. She?says?she?is?still?taking?atorvastatin?as?prescribed Started?a?keto?diet?and?is?eating?meat?eggs Advised?her?to?adjust?her?diet?to?eat?unless?saturated?fats?and?cholesterol Continue?atorvastatin Follow-up?3?months (3) Pre-diabetes: Code(s): R73.03 - Prediabetes Category: Medical Plan: A1c?has?climbed?to?6.1% Encouraged?her?to?work?on?a?diet?lower?in?sugars?and?starches Will?follow?and?repeat?A1c?in?3?months (4) Vitamin D deficiency: Code(s): E55.9 - Vitamin D deficiency, unspecified Category: Medical Plan: Vitamin-D?is?within?normal?range Continue?vitamin-D?supplement Orders: Orders Comprehensive [place]. Panel Fast Today Z00.00 - Encounter for general adult medical examination without abnormal findings Hemoglobin A1c Today R73.01 - Impaired fasting glucose Lipid Panel Today E78.00 - Pure hypercholesterolemia, unspecified, Z00.00 - Encounter for general adult medical examination without abnormal findings Medications: Refilled losartan 50 mg PO DAILY 90 days 90 tabs 2RF
[2024-08-31 08:38] VITALS: BP 120/80; PULSE 91; RESP 12; TEMP 37.3; O2SAT 98; BMI 33.7
--- OUTSIDE RECORDS SUMMARY | 2024-08-31 08:39 | XMS_ITS | Patient Health Record ---
Author Organization [facility] [employer] [facility] Address [address] [place] [address] Care Team Providers Care Health Program Manager Name Role Phone DEZ AHMADI Primary Care Provider Unavailab Aisha Randall Unavailable [phone] Allergies Allergen (clinical drug ingredient) Drug/Non Drug Allergy documented on EMR Reaction Allergy Type Onset Date Status Motrin Rash Drug Allergy Active Results Component Value Reference Range Notes [id number] IGP No Culture 30 Plus Reviewed date:09/12/2023 04:26:57 PM Interpretation: Performing Lab:[facility], [address], [address], [place], Phone - [phone], Director - [facility] Notes/Report: No. of containers..01 ThinPrep Vial Dates / Results....03/21/21 NIL, Neg HPV Clinical Information:Vaginal/Cervical, LMP: 5/2 024 [id number] DIAGNOSIS: NEGATIVE FOR IN TRAEPITHELIAL LESION OR MALIGNANCY. Specimen adequacy: Satisfactory for evaluation. Endocervical and/or squamous metaplastic cells (endocervical component) are present. Clinician provided ICD10: Z0 1.419 Performed by: Tex bright, Scuba Diving Teacher (ASCP) . . Note: The Pap smear is a screening test designed to aid in the detection of premalignant and malignant conditions of the uterine cervix. It is not a diagnostic procedure and should not be used as the sole means of detecting cervical cancer. Both false-positive and false-negative reports do occur. . Test Methodology: TNP The Thin Prep(R) Asbestos Removal Worker was unable to read this specimen. Therefore a manual review was performed. HPV Aptima Negative Negative This nucleic acid amplification test detects fourteen high-risk HPV types (16,18,31,33,35,39,45,51,52,56,58 ,59,66,68) without differentiation. HPV Genotype Reflex Criteria not met, HPV Genotype not performed. Urinalysis Reviewed date:09/10/2023 09:27:15 AM Interpretation: Performing Lab: Notes/Report: PH 5.0 PROTEIN Neg GLUCOSE Neg BLOOD Neg PDF Report Reviewed date:09/12/2023 04:26:34 PM Interpretation: Performing Lab:[facility] [place], [address], [address], [place], Phone - [phone], Director - [facility] Notes/Report: Clinical Information:Vaginal/Cervical, LMP: 07/31 [id number] Dates / Results....03/21/21 NIL, Neg HPV No. [...] Status W/U Status Risk Notes Problem Essential (primary) hypertension (I10) Active confirmed Vital Signs Temperature 98.1 degrees Fahrenheit 09/10/2023 Blood pressure diastolic 80 mm Hg 09/10/2023 Height 63 in 09/10/2023 Blood pressure systolic 122 mm Hg 09/10/2023 Weight 180 lbs 09/10/2023 BMI 31.88 kg/m2 09/10/2023 Encounters Encounter Location Date Provider Diagnosis Total [address] [place] [address] 09/10/2023 Aisha Shepard Encounter for gynecological examination [...] Provider Name:Aisha huerta, 09/11/2024 09:10:00 AM, [address], [address], [place], [address], Insurance Providers Payer Name Payer Address Payer Phone Subscriber Number Group Number Insured Name Patient Relationship to Insured Coverage Start Date Coverage End Date [employer] [place] [address] [place] [address] [phone] [id number] ZEE DUBON Spouse - patient is the [...]
== END 2024-08-31 09:03 | disposition home or self-care (01) ==
LOC: HO.HMCFM 08:27
PROVIDERS: PCP Family Medicine; Visit Provider Family Medicine
DX: I10 Essential (primary) hypertension (principal); E78.00 Pure hypercholesterolemia, unspecified; R73.03 Prediabetes; E55.9 Vitamin D deficiency, unspecified

== ENCOUNTER → 2024-08-31 08:27 | Outpatient (BNVA) | payer BC, SELFPAY | PROVIDERS: PCP Family Medicine; Visit Provider Family Medicine | DX: Z13.89 Encounter for screening for other disorder (principal) ==

== ENCOUNTER 2025-01-08 10:04 | Outpatient (REF) | payer BC, SELFPAY ==
[2025-01-08 11:55] LABS: Alanine Aminotransferase 24 U/L (0-31); Albumin Level 4.3 g/dL (3.5-5.0); Alkaline Phosphatase 74 U/L (39-117); Anion Gap 9 (12-20); Aspartate Amino Transferase 28 U/L (5-31); Blood Urea Nitrogen 13 mg/dL (9-16); Calcium 8.9 mg/dL (8.4-10.2); Carbon Dioxide 28 mmol/L (22-29); Chloride 109 mmol/L (96-108); Cholesterol 160 mg/dL (<200); Estimated Glomerular Filt Rate > 60; HDL Cholesterol 60 mg/dL (>40); Potassium 3.9 mmol/L (3.3-5.1); Sodium 142 mmol/L (135-145); Total Protein 6.9 g/dL (6.5-8.0); Triglycerides 74 mg/dL (<150)
[2025-01-08 15:56] LABS: Hemoglobin A1C 149.2311 umol/L
== END 2025-01-08 10:05 | disposition home or self-care (01) ==
LOC: HO.WFDLDS 10:04
PROVIDERS: Visit Provider Family Medicine
DX: Z00.00 Encounter for general adult medical examination without abnormal findings (principal); R73.01 Impaired fasting glucose; E78.00 Pure hypercholesterolemia, unspecified
CPT/HCPCS: 36415; 80053; 80061; 83036

== ENCOUNTER 2025-01-13 11:43 | Outpatient (AMB) | payer BC, SELFPAY ==
--- OUTSIDE RECORDS SUMMARY | 2024-09-11 05:10 | XMS_ITS ---
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 Yes AUDIT-C (Standard) Question Answer Notes Did you have a drink containing alcohol in the p ast year? No Points 0 Interpretation Negative Tobacco Control (Standard) Question Answer Notes Tobacco use: Nonsmoker Encounters Encounter Location Date Provider Diagnosis [address] [address] 09/11/2024 Aisha Shepard Plan Of Treatment Next Appt Details Provider Name:Aisha huerta, 11/01/2025 09:00:00 AM, [address] [place] [address], [place], [address], Progress Notes * RAFIQ DUBONDOB:1975 ( 49 yo F)Acc No.[id number]:09/11/2024 PROGRESS NOTES Patient: RAFIQ TRACY Appointment Provider: Marin Shepard M.D. :1975 A ge:49 Y S ex:Female Date:09/11/2024 Address[address] [place] Pcp:DEZ AHMADI Subjective: * Chief Complaints: * 1 . 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 * Medical History: E ssential (primary) hypertension, Inconclusive mammogram, Unspecified lump in the right breast, upper outer quadrant, Mammographic heterogeneous density, bilateral breasts, Dense breasts, unspecified. 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 S exual activity c urrently sexually active. L ast Pap Smear: 1 05/22/20 NIL, NEG HPV, Endometrial Cells on pap, 2019. M ammogram: 50-75% density, 04/03/21 Diagnostic Right Breast, 03/2020.? A bnormal Pap Smear: n o history of abnormal pap smears. L MP and menses Coming Further Apart. H istory of STD's: n one. B irth Control: n one. M enarche 1 1. C olonoscopy Q 3 Years, Polyps. B one Density: N o. G ardasil: N o. * OB History: T otal pregnancies 3 . T otal living children 3 . * Social History: T obacco Use: T obacco Control (Standard) T obacco use: N onsmoker S exual History: S exual History H ad sex in the past 12 months (vaginal, oral, or anal)? Y es Details of Sexual History A re you sexually active? Y es D rugs/Alcohol: D rugs H ave you used drugs other than those for medical reasons in the past 12 months? N o M iscellaneous: C hildren: yes, 3. Exercise: yes. Home smoke detector use: yes. Living with: spouse. Marital status: . Natural support system: yes. 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 Sexually active: yes, monogamous relationship. D rug/Alcohol: A CHEKO-C (Standard) D id you have a drink containing alcohol in the past year? N o P oints 0 I nterpretation N egative * Allergies: M otrin: Rash - Allergy. Objective: * Vitals: Assessment: Plan: * Treatment: * Images: Billing Information: * Visit Code: * Procedure Codes: * Electronic signature of Edy Shepard MD on 01/13/2025 at 02:54 PM EDT Sign off status: Pending * Appointment Provider: Marin Shepard M.D. Date: 0 09/11/2024 Generated for Barry xiong/Simeon/Leno on: 1 02:54 PM EDT
--- NOTE | 2025-01-13 11:45 | A.OFFPC_ITS ---
Vital Signs 01/13/25 11:49 Height 5 ft 2 in Weight 184 lb 8 oz BMI 33.7 BP 130/80 Blood Pressure Location Rt brachial Position Sitting Respiration 16 Pulse 105 H Pulse Source Pulse Oximeter Temp 98.2 F Temp Source Oral Pulse Oximetry (%) 97 Oxygen Delivery Method Room Air Intake Visit Reasons: f/u HTN, Lipids & PreDM Intake Note: patient here for follow up on HTN, lipids and pre-DM Out Of School Hours Care Worker Required: No Is last menstrual period known: No Post menopausal: No Patient : No Allergies ibuprofen (Ibuprofen) Allergy (Mild, Verified 01/13/25 11:48) RASH Tobacco use date assessed: 01/13/25 Dental Screening Dental Screen Date: 01/13/25 Did you have a dental visit in the last 12 months?: Yes Did you have a dental problem in the last 6 months where you did not have access to dental care?: No Was dental information given to patient?: Patient has dentist HPI f/u HTN, Lipids & PreDM HPI Details 49 y/o female presents to f/u HTN, HLD, labs. Labs drawn 01/08/25. Reviewed labs with pt. A1c worsened from 6.1% to 6.3%. Triglycerides 74. TC 160. LDL improved from 144 to 86. She is on artovastatin 20mg. HDL 60. BP today 130/80, 105p. She is on losartan 50mg, verapamil ER 240mg daily. [facility] Medical History (Updated 06/11/24 @ 09:26 by Maurice Villagomez MD) Pre-diabetes Elevated cholesterol HTN (hypertension) No pertinent past medical history Surgical History Hx of colonoscopy History of bilateral tubal ligation No pertinent past surgical history Social History Housing: House Comment: mild cramping-on menses Patient Tobacco Use Status: Never used Tobacco e-Cigarette/Vaping Use: Never Used Second Hand Smoke Exposure: Yes (sometimes at work ) Patient : No service: No Current occupational status: employed Current occupation: [employer] Current occupational exposures/hazards: No Cognitive needs: No Hearing needs: No Vision needs: No Questionnaire Thrive Questionnaire Date Thrive assessed: 06/08/24 I am a: Patient What is your living situation today?: I have a steady place to live Within the past 12 months, did the food you bought not last and you didn't have the money to get more?: I choose not to answer this question Within the past 12 months, did you worry whether your food would run out before you got money to buy more?: I choose not to answer this question Do you have trouble paying for medicines?: No Do you have trouble getting transportation to medical appointments?: No Do you have trouble paying your heating and electricity bill?: No Do you have trouble taking care of your child, family member or friend?: No Do you have trouble with day-to-day activities such as bathing, preparing meals, shopping, managing finances, etc.?: No Are you currently unemployed and looking for a job?: No Are you interested in more education?: No Please select the resources that you would like help with: None Currently or been in a relationship where the following occur: No concerns reported THRIVE Score: 0 FRANCISCA-7 AMB Questionnaire FRANCISCA-7 Date FRANCISCA - 7 assessed: 11/14/23 Source: Developed by Drs. Karel Ross, Agueda Neves, Reginaldo Ramirez and colleagues, with an educational jason from [employer]. Review of Systems Const Denies chills, Denies fatigue, Denies fever(s), Denies headache(s) and Denies weakness ENT Denies dizziness and Denies headache(s) Card Denies dyspnea Resp Denies cough, Denies dyspnea, Denies wheezing and Denies other (shortness of breath) Musc Denies numbness and Denies tingling Neuro Denies dizziness, Denies headache(s), Denies numbness, Denies tingling and Denies weakness Psych Denies anxiety and Denies depression Endo Denies fatigue Aller/Immun Denies wheezing Physical exam (Primary Care) Vital Signs: Last Vital Signs Temp 98.2 F 01/13/25 11:49 Pulse 105 H 01/13/25 11:49 Resp 16 01/13/25 11:49 BP 130/80 01/13/25 11:49 Pulse Ox 97 01/13/25 11:49 Oxygen Delivery Method Room Air 01/13/25 11:49 BMI result Body Mass Index 33.7 Tobacco/Smoking Status: Tobacco use Status Tobacco use date assessed 01/13/25 01/13/25 11:52 Patient Tobacco Use Status Never used Tobacco 01/13/25 11:52 e-Cigarette/Vaping Use Never Used 01/13/25 11:52 Thrive Assessment: Date of Thrive Assessment Date Thrive assessed 06/08/24 01/13/25 11:52 Currently or been in a relationship where the following occur: No concerns reported Const General: well developed; No acute distress Nutritional Appearance: well nourished Orientation/consciousness: patient oriented x3 HENMT Head: Yes normocephalic and Yes atraumatic Eyes General: appearance normal, both eyes and all related structures Pupils: Equal, round and reactive pupils present EOM: EOMs intact bilaterally Resp Effort & Inspection: normal respiratory effort Neuro General: patient oriented x3 and gait normal Cranial nerves: Yes Equal, round and reactive pupils present Psych Affect: normal affect Coding Level of Care Code Est Pt Level 4 (80976) Diagnoses Essential hypertension I10 Hypercholesterolemia E78.00 Pre-diabetes R73.03 Assessment & Plan Assessment & Plan (1) Essential hypertension: Code(s): I10 - Essential (primary) hypertension Category: Medical Plan: Blood pressure remains controlled. Goal is less than 140/90 Continue current medication Watch salt and sodium Advised exercise and weight loss (2) Hypercholesterolemia: Code(s): E78.00 - Pure hypercholesterolemia, unspecified Category: Medical Plan: She is on atorvastatin At her last visit her lipids were high and we discussed adjusting her medication but she wanted to work on lifestyle changes. Lipid panel all within normal range now Continue atorvastatin as prescribed and continue to work at diet low in saturated fats and cholesterol (3) Pre-diabetes: Code(s): R73.03 - Prediabetes Category: Medical Plan: A1c continues to climb and now at 6.3%. Getting into upper limits of pre diabetes range Encouraged diet low in sugars and starches Encouraged weight loss and exercise Will continue to monitor
[2025-01-13 11:49] VITALS: BP 130/80; PULSE 105; RESP 16; TEMP 36.8; O2SAT 97; BMI 33.7
--- OUTSIDE RECORDS SUMMARY | 2025-01-13 14:54 | XMS_ITS | Patient Health Record ---
Author Organization [facility] [employer] [facility] Address [address] [place] [address] Care Team Providers Care Instructor Warper Name Role Phone DEZ AHMADI Primary Care Provider Unavailab eric Aisha Shepard Unavailable [phone] Allergies Allergen (clinical drug ingredient) Drug/Non Drug Allergy documented on EMR Reaction Allergy Type Onset Date Status Motrin Rash Drug Allergy Active Results Component Value Reference Range Notes Urinalysis Reviewed date:10/28/2024 02:54:43 PM Interpretation: Performing Lab: Notes/Report: PH 5.0 PROTEIN Neg GLUCOSE Neg BLOOD Trace Reason For Referral No Information Medications Medication SIG (Take, Route, Frequency, Duration) Notes Start Date End Date Status Atorvastatin Calcium 20 MG TAKE 1 TABLET BY MOUTH AT BEDTIME Oral; Duration: 90 Days Active Verapamil HCl ER 240 MG 1 capsule Orally Once a day; Duration: 30 day(s) Active Losartan Potassium 50 MG 1 tablet Orally Once a day; Duration: 30 days Active Vitamin D3 125 MCG (5000 UT) 1 capsule Orally Once a day Active Social History Tobacco Use: Social History [...] (Standard) Question Answer Notes Tobacco use: Nonsmoker Problems Problem Type SNOMED Code ICD Code Onset Dates Problem Status W/U Status Risk Notes Problem Essential hypertension (80950353) Essential (primary) hypertension (I10) Active confirmed Problem Unspecified menopausal and perimenopausal disorder (N95.9) Active confirmed Vital Signs Temperature 98.1 degrees Fahrenheit 10/28/2024 Blood pressure diastolic 94 mm Hg 10/28/2024 Height 63 in 10/28/2024 Blood pressure systolic 144 mm Hg 10/28/2024 Weight 180 lbs 10/28/2024 BMI 31.88 kg/m2 10/28/2024 Encounters Encounter Location Date Provider Diagnosis [facility] [address] [place] [address] 10/28/2024 Aisha Shepard Encounter for gynecological examination (general) (routine) without abnormal findings Z01.419 ; Encounter for screening mammogram for malignant neoplasm of breast Z12.31 ; Unspecified menopausal and perimenopausal disorder N95.9 and Dense breasts, unspecified R92.30 Assessments Encounter Date Diagnosis (ICD Code) Assessment Notes Treatment Notes Treatment Clinical Notes Section Notes 10/28/2024 Encounter for gynecological examination (general) (routine) without abnormal findings (ICD-10 - Z01.419) NO PAP TEST, DUE IN 2026. 10/28/2024 Encounter for screening mammogram for malignant neoplasm of breast (ICD-10 - Z12.31) REGULAR MAMMOGRAMS AND SBE'S WERE RECOMMENDED. 10/28/2024 Unspecified menopausal and perimenopausal disorder (ICD-10 - N95.9) DISCUSSED PERIMENOPAUSE AND SYMPTOMS ASSOCIATED WITH THIS. CALL IF SHE HAS ANY ABNORMAL BLEEDING. RECOMMENDED OTC ESTROVEN FOR WORSENING MENOPAUSE SYMPTOMS. 10/28/2024 Dense breasts, unspecified (ICD-10 - R92.30) DISCUSSED DENSE BREASTS ON MAMMOGRAM AND ITS IMPLICATIONS. 3D MAMMOGRAMS WERE RECOMMENDED. Plan Of Treatment Pending Test Test Name Order Date Urinalysis 03/21/2021 DIAGNOSTIC MAMMOGRAM, RIGHT BREAST 03/21 MM Digital Mammo Screening 06/21/2022 MM Digital Mammo Screening 09/10/2023 MM Digital Mammo Screening 10/28/2024 Right Breast Ultrasound 03/21/2021 DIGITAL SCREENING MAMMO LEFT BREAST 03/02 Next Appt Details Provider Name:Aisha Torres bradley, 11/01/2025 09:00:00 AM, [address], [address], [place], [address], Insurance Providers Payer Name Payer Address Payer Phone Subscriber Number Group Number Insured Name Patient Relationship to Insured Coverage Start Date Coverage End Date [employer] [place] [address] [place] [address] [id number] ZEE DUBON Spouse - patient is the spouse of the insured Medical (General) History Medical History History ICD Code Essential (primary) hypertension I10 Inconclusive mammogram R92.2 Unspecified lump in the right breast, up per outer quadrant N63.11 Mammographic heterogeneous density, bila teral breasts R92.333 Dense breasts, unspecified R92.30 Polyp of colon K63.5 Surgical History Surgery Date(Month/Year) Tubal Ligation 2013 Colonoscopy 05/2023 Hospitalization History Reason Date(Month/Year) See Surgical Hx 3 Vaginal Deliveries
== END 2025-01-13 12:31 | disposition home or self-care (01) ==
LOC: HO.HMCFM 11:44
PROVIDERS: PCP Family Medicine; Visit Provider Family Medicine
DX: I10 Essential (primary) hypertension (principal); E78.00 Pure hypercholesterolemia, unspecified; R73.03 Prediabetes